=== PATIENT | male | born 1975 | race Caucasian/White ===

== ENCOUNTER 2016-05-15 16:59 | Emergency (ER) | payer OTHER ==
[~2016-05-15] VITALS: Ht 185.4 cm; Wt 125.8 kg
[2016-05-15 17:04] VITALS: TEMP 37.2; Ht 185.4 cm; Wt 125.8 kg
[2016-05-15] MEDS ORDERED: XYLOCAINE 1%/SOD BICARB 20 ML VIAL INFIL ONE (17:30)
[2016-05-15 18:12] VITALS: BP 148/92; PULSE 78; O2SAT 98
--- NOTE | 2016-05-16 22:01 | EMERGENCY ROOM VISIT NOTE ---
ED Visit Note First contact with patient: 17:11 Chief Complaint: I cut my right hand. History of Present Illness: Mr. Che is a 40-year-old white male who ambulates into the ED complaining of a posterior right hand laceration. 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 Prior to arrival at the hospital he did control bleeding but did not wash his wound. Associated with his laceration he reports there is a mild stinging sensation. He rates his discomfort 1/10. Pain is nonradiating. His pain worsens with palpation. He has not identified any alleviating factors related to the pain. He has not taken any medication for pain prior to arrival at the hospital. He denies any associated symptoms including other hand pain, hand/finger weakness/ numbness/tingling. Review of Systems: As noted above in history of present illness. 8 body systems were reviewed and found to be negative as noted above. Past Medical History: Status post surgical repair detached retina and an infected laceration on the left hand. Current Medications: Patient denies. Allergies to Medications: Ibuprofen. Social History: Patient is currently employed; he feels safe in his home environment; he admits to tobacco and alcohol use. Tetanus Immunization Status: Patient reports up-to-date. Physical Examination: Vital Signs: Date Time Temp Pulse Resp B/P Pulse Ox O2 Delivery O2 Flow Rate FiO2 05/15/16 18:12 78 20 148/92 98 05/15/16 17:04 37.2 90 18 154/104 96 Room Air GENERAL: 40-year-old male in mild distress due to pain, nontoxic-appearing, afebrile and hemodynamically stable. NEUROLOGICAL: Awake, alert and oriented to person, place and time. Answering questions appropriately and following commands. SKIN: Warm, dry and pink. Right Hand: Over the posterior aspect of the hand there is a 3.6 cm full-thickness laceration over the first metacarpal. No active bleeding. RIGHT HAND: Soft tissue injury as noted above. No gross bony deformities. Mild tenderness over his laceration but no tenderness or bony deformity or crepitus throughout the hands of the fingers. Throughout the fingers the skin was warm and pink and capillary refill is brisk. He was able to distinguish light sensations through all dermatomes. ED Course: Patient is assessed as noted above. Wound Repair: Complexity: Basic Verbal consent was obtained after the risks and benefits were explained. The skin was prepped with betadine and a sterile field set. Wound edges of the wound was anesthetized with 3.2 ml buffered 1% lidocaine. The wound was explored for foreign bodies and none found. Copious irrigation was performed using sterile saline. With direct pressure the bleeding subsided. Debridement was not performed. The wound edges were approximated using 50- Ethilon with 10 simple interrupted sutures. Hemostasis and excellent approximation was achieved. Antibacterial ointment and a sterile dressing applied. No complications and the patient tolerated the procedure well. Patient was educated about tonight's findings and instructed on his treatment plan; he verbalizes understanding and agreement with this plan. Clinical Impression: Laceration of the right hand. Disposition: Patient discharged home in stable condition; prior to departure he was reassessed and subjectively reported he was pain-free Plan: Comfort measures, wound care, and signs of infection were discussed with the patient. Patient was encouraged to follow-up with primary care provider or return to the ED for signs of infection and/or suture removal in 10-12 days.
== END 2016-05-15 18:13 | disposition home or self-care (01) ==
LOC: C.EDB 17:01 → C.EDD 18:13
DX: S61.411A Laceration without foreign body of right hand, initial encounter (principal); W26.8XXA Contact with other sharp object(s), not elsewhere classified, initial encounter; Y93.89 Activity, other specified; Y99.0 Civilian activity done for income or pay; Y92.89 Other specified places as the place of occurrence of the external cause; Z98.890 Other specified postprocedural states; Z72.0 Tobacco use

== ENCOUNTER 2016-05-27 11:29 | Emergency (ER) | payer OTHER ==
[~2016-05-27] VITALS: Ht 182.9 cm; Wt 126.6 kg
[2016-05-27 11:31] VITALS: PULSE 99; TEMP 36.7; O2SAT 95; Ht 182.9 cm; Wt 126.6 kg
--- NOTE | 2016-05-27 11:50 | EMERGENCY ROOM VISIT NOTE ---
ED Visit Note First contact with patient: 11:41 CHIEF COMPLAINT: Suture removal This patient returns to the ED today for removal of sutures that were placed 10 days ago. There has been no increased swelling, redness, or drainage from the wound. The patient feels like the laceration is healing well. REVIEW OF SYSTEMS: Head: No headache, injury or neck pain. Skin: No rash, new lesions, or masses. General: No fever or chills, fatigue, loss of appetite , or significant recent weight gain or loss. PMH: The patient is healthy; there is no significant medical or surgical history. SOCIAL HISTORY: Patient lives at home. PHYSICAL EXAM: Vital Signs: Reviewed Nurse's notes. There is a sutured wound on the Right hand palmar aspect with no signs of infection. There is no tenderness in this region. There is a well-demarcated erythematous region encircling the wound however believe that this is secondary to scar formation and is not infection. 4 range of motion of the hand. He is neurovascularly intact. EMERGENCY DEPARTMENT COURSE: The sutures were removed without any difficulty. I do believe that it is appropriate to remove the stitches at this time. There is evidence of underlying wound healing, with superficial separation of the wound edges post removal of the stitches. I do believe that is appropriate at this time to thoroughly irrigate the wound, followed by applying tincture of benzoin and then for Steri-Strips. The patient tolerated this well. The Steri- Strips are to help with the superficial wound healing which I suspect will take place in the next few days. The patient was educated to follow-up with his family doctor in the next few days for recheck to ensure proper healing, he is to return here for any worsening such as redness, swelling or drainage. He states that he does work with his hands a lot and I thoroughly educated him upon management of this wound. I informed him that putting in the time now to allow to heal walk for benefit in the future however if he continues to try and use the hand and it becomes dirty and wet that it certainly will become infected and he verbalized understanding. At this time I believe he is stable for discharge. He was again educated upon worrisome symptoms which to return, had questions prior to discharge and was discharged home in good condition. Current/Historical Medications No Active Prescriptions or Reported Meds Allergies Coded Allergies: Ibuprofen (Verified Allergy, Severe, ANAPHYLAXIS, 05/27/16) Vital Signs Date Time Temp Pulse Resp B/P Pulse Ox O2 Delivery O2 Flow Rate FiO2 05/27/16 11:31 36.7 99 18 137/87 95 Room Air Departure Information Impression Primary Impression: Encounter for removal of sutures Dispostion Home / Self-Care Condition GOOD Prescriptions No Active Prescriptions or Reported Meds Referrals Thomas Connor D.OIsai (PCP) Patient Instructions My [facility] Additional Instructions You were seen in the emergency department for removal of your sutures/stitches. The wound is almost healed. Please allow the Steri-Strips to stay on the wound for the next 2 days. Please follow-up with your family doctor by calling them Saturday for recheck. These return for any worsening signs of infection as we discussed such as redness, swelling or drainage. Thank you for your time.
[2016-05-27 11:53] VITALS: BP 118/92
== END 2016-05-27 11:56 | disposition home or self-care (01) ==
LOC: C.EDB 11:31 → C.EDD 11:56
DX: S61.411D Laceration without foreign body of right hand, subsequent encounter (principal); X58.XXXD Exposure to other specified factors, subsequent encounter

== ENCOUNTER 2021-09-09 07:30 | Inpatient (IN) ==
[2021-09-09] MEDS ORDERED: ONDANSETRON INJ 2 MG/ML 2 ML VIAL IV STA (07:46)
[2021-09-09] MEDS ORDERED: HYDROmorphone INJ 1 MG/ML SYRINGE IV STA (07:46)
[2021-09-09] MEDS ORDERED: SODIUM CHLORIDE 0.9% 1000ML 1,000 ML IV ONE (07:46)
--- NOTE | 2021-09-09 07:50 | Emergency Department Note ---
Impression & Plan Acute cholecystitis, Abdominal pain, acute, epigastric ED Provider Note Name: VERONICA ROBBINS Age: 45 Sex: M Arrives Via: Walk-In Informant: Patient, ED Provider: Won Dickens MD Chief Complaint: Abdominal pain Impression: As per impressions above Medical Decision Making: Pleasant 45-year-old healthy male arrives with acute onset of abdominal pain st arting earlier this morning. Primarily epigastric but radiates throughout abdomen associated with nausea and vomiting unable to keep down any liquids. Moderate epigastric right upper quadrant tenderness to palpation on exam with hyperactive bowel sounds felt that CT imaging indicated emergently. Labs with mild white blood cell count elevation mild LFT bump. CT abdomen pelvis reveals acute cholecystitis. Patient was given IV Mefoxin and general surgery was consulted. Patient was taken to the OR for further management. Patient stable not septic and well-appearing throughout most of ER stay. Prior Medical Record and Triage/Nursing Notes reviewed by Me Differentials:Acute cholecystitis, pancreatitis, GERD, peptic ulcer disease, hepatic dysfunction, aortic dissection, bowel obstruction, volvulus, renal colic, mesenteric ischemia, amongst other pathologies. Vital Signs: reviewed and remarkable for no significant abnormalities Interventions: Dilaudid 1 mg IV, Zofran 4 mg IV, normal saline 1 L IV, Mefoxin 2 g IV Labs:Reviewed and remarkable for mild elevation in WBC Imaging:CT abdomen pelvis with IV contrast as per radiology there is acute cholecystitis see radiologist read for full interpretation Consults:Dr. Vieira of [facility] general surgery patient taken the OR for further management Plan: Disposition: Operating Room Condition: Good History of Present Illness:45-year-old gentleman arrives for evaluation of abdominal pain. Patient notes he awoke around 3 AM this morning with severe diffuse abdominal pain. Pain does tend to come a bit in waves but has been relatively constant throughout the night. Stabbing and sharp and nature. Associated with nausea and vomiting. Notes diffuse radiation of pain throughout abdomen but no radiation to back. Denies any chest pain, shortness of breath, syncope, urinary symptoms, diarrhea, leg swelling, rashes, bleeding/bruising, other signs or symptoms. He has had no recent fevers, chills or infectious symptoms. He was working out in the heat the last few days and does get dehydrated easily. He took Tylenol meloxicam without improvement in his abdominal pain. Does note any eating or drinking makes this pain worse and he vomits rapidly. Staying still makes the pain better. No previous abdominal surgeries. Denies any recent trauma, falls, injuries. ROS: See above HPI for pertinent positives & negatives. A total of 10 systems reviewed and were otherwise negative. 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 EYES: No scleral icterus, unremarkable pupils. ENT: Mucous membranes moist, no nasal congestion. NECK: No masses appreciated, nomeningismus, trachea is midline. RESPIRATORY: No dyspnea. Clear to auscultation and equal bilaterally. No wheeze, no rhonchi. CARDIOVASCULAR: Regular rate and rhythm.No murmurs, rubs, gallops appreciated. GASTROINTESTINAL: Soft though diffuse tenderness with hyperactive bowel sounds throughout the epigastrium BACK: No midline tenderness, no CVA tenderness EXTREMITIES: Normal motion all extremities, no cyanosis, no edema. NEUROLOGIC: Alert and oriented, no acute motor or sensory deficits, no focal weakness, cranial nerves grossly intact. SKIN: No rash, no jaundice, no diaphoresis. PSYCH: Appropriate GCS: 15 ED Course: Times/Reassessments: Patient much improved after IV pain medications. Tolerated IV antibiotics without issue. There is some discussion as to whether attempt outpatient management however after further discussion with general surgery he was agreeable to going to the OR for further management. Won Dickens MD Past Med/Surg History Social History Smoking Status: Never smoker Tobacco Type: Smokeless Tobacco (Dip or Chew) Preferred Language: Iraqi Feels Safe at Home: Yes Allergies Allergies Allergy/AdvReac Type Severity Reaction Status Date / Time ibuprofen Allergy Severe ANAPHYLAXIS Verified 09/09/21 12:17 Home Meds Home Medications Medication Instructions Recorded Confirmed fluticasone propionate 50 2 spray intranasal BID 09/09/21 09/09/21 mcg/actuation nasal spray,suspension (24 Hour Allergy Relief) meloxicam 7.5 mg tablet 7.5 mg PO QAM 09/09/21 09/09/21 Results & Data (ED) Vital Signs Vital Signs - 24 hr 09/09/21 07:34 09/09/21 08:34 09/09/21 09:22 Temperature 36.3 C L Temperature Source Temporal Artery Scan Pulse Rate 52 L Pulse Rate [Right Finger] 62 Respiratory Rate 18 16 18 Respiratory Effort / Characteristics Non-Labored Non-Labored Non-Labored Respiratory Depth Normal Normal Normal Respiratory Pattern Regular Regular Blood Pressure 147/70 H Blood Pressure [Right Arm] 121/77 126/70 Blood Pressure Mean 95 Blood Pressure Mean [Right Arm] 91 88 Blood Pressure Position [Right Arm] Lying Lying Pulse Oximetry 94 95 98 Oxygen Delivery Method Room Air Room Air Room Air Sepsis Recent Fever Within 48 Hours No Sepsis New/Unexplained Change in Mental Status No Sepsis Action Taken by Nursing No Action Required 09/09/21 10:33 09/09/21 13:08 Temperature Temperature Source Pulse Rate Pulse Rate [Right Finger] 58 L 66 Respiratory Rate 16 16 Respiratory Effort / Characteristics Non-Labored Spontaneous Non-Labored Respiratory Depth Normal Normal Respiratory Pattern Regular Blood Pressure Blood Pressure [Right Arm] 145/85 H 124/79 Blood Pressure Mean Blood Pressure Mean [Right Arm] 105 94 Blood Pressure Position [Right Arm] Lying Lying Pulse Oximetry 97 96 Oxygen Delivery Method Room Air Room Air Sepsis Recent Fever Within 48 Hours Sepsis New/Unexplained Change in Mental Status Sepsis Action Taken by Nursing Laboratory Data Result diagrams: 09/09/21 07:50 09/09/21 07:50 Lab Results 09/09/21 09/09/21 09/09/21 Range/Units 07:50 07:50 07:50 WBC 12.01 H (4.8-10.8) K/ul RBC 5.18 (4.63-6.08) M/uL Hgb 15.9 (14.0-18.0) g/dl POC Hgb (14.0-18.0) g/dl Hct 46.7 (40.1-51.0) % POC Hct (42-52) % MCV 90.2 (80.0-100.0) fL MCH 30.7 (25.0-34.0) pg MCHC 34.0 (32.0-36.0) g/dL RDW Std Deviation 40.8 (36.4-46.3) fL RDW Coeff of Keegan 12.3 (11.5-14.5) % Plt Count 210 (130-400) K/uL MPV 9.2 L (9.4-12.4) fL Immature Gran % (Auto) 0.4 % Neut % (Auto) 82.9 % Lymph % (Auto) 11.7 % [place] % (Auto) 4.6 % Eos % (Auto) 0.3 % Baso % (Auto) 0.1 % Neut # (Auto) 9.95 H (1.4-6.5) K/uL Lymph # (Auto) 1.41 (1.2-3.4) K/uL [place] # (Auto) 0.55 (0.24-0.82) K/uL Eos # (Auto) 0.04 (0-0.50) K/uL Baso # (Auto) 0.01 (0-0.2) K/uL Immature Gran # (Auto) 0.05 H (0.00-0.02) K/uL POC Sodium (135-144) mmol/L Sodium 140 (136-145) mmol/L POC Potassium (3.3-5.0) mmol/L Potassium 4.3 (3.5-5.1) mmol/L POC Chloride (101-112) mmol/L Chloride 106 (98-107) mmol/L Carbon Dioxide 29 (21-32) mmol/L POC Total CO2 (24-31) mmol/L Anion Gap 5 (3-11) POC Anion Gap (16-25) mmol/L POC BUN (7-18) mg/dl BUN 17 (6-23) mg/dl Creatinine 0.90 (0.6-1.4) mg/dl POC Creatinine (0.6-1.3) mg/dl Est Cr Clr Drug Dosing 140.2 ml/min Est GFR ( Amer) 119.1 ml/min Est GFR (Non-Af Amer) 102.8 ml/min BUN/Creatinine Ratio 18.9 (10-20) Glucose 130 H (70-99(Fasting)) mg/dl POC Glucose (other) (70-99) mg/dl Calcium 9.5 (8.5-10.1) mg/dl POC Ioniz Calcium [place] (1.12-1.32) mmol/l Total Bilirubin 0.9 (0.2-1.0) mg/dl Direct Bilirubin 0.1 (0-0.2) mg/dl AST 29 (13-39) U/L ALT 64 H (7-52) U/L Alkaline Phosphatase 73 (34-104) U/L Total Creatine Kinase 244 H (30-223) U/L Total Protein 7.8 (6.0-8.3) gm/dl Albumin 4.5 (3.4-5.0) gm/dl Lipase 18 (11-82) U/L Urine Color Yellow Urine Appearance Clear (Clear) Urine pH 5.0 (4.5-7.5) Ur Specific [place] 1.024 (1.000-1.030) Urine Protein Negative (Negative) Urine Glucose (UA) Negative (Negative) Urine Ketones Negative (Negative) Urine Blood Negative (Negative) Urine Nitrite Negative (Negative) Urine Bilirubin Negative (Negative) Urine Urobilinogen Negative (Negative) Ur Leukocyte Esterase Negative (Negative) SARS-CoV-2, RNA, NAAT (NEGATIVE) 09/09/21 09/09/21 Range/Units 08:00 09:10 WBC (4.8-10.8) K/ul RBC (4.63-6.08) M/uL Hgb (14.0-18.0) g/dl POC Hgb 16.7 (14.0-18.0) g/dl Hct (40.1-51.0) % POC Hct 49 (42-52) % MCV (80.0-100.0) fL MCH (25.0-34.0) pg MCHC (32.0-36.0) g/dL RDW Std Deviation (36.4-46.3) fL RDW Coeff of Keegan (11.5-14.5) % Plt Count (130-400) K/uL MPV (9.4-12.4) fL Immature Gran % (Auto) % Neut % (Auto) % Lymph % (Auto) % [place] % (Auto) % Eos % (Auto) % Baso % (Auto) % Neut # (Auto) (1.4-6.5) K/uL Lymph # (Auto) (1.2-3.4) K/uL [place] # (Auto) (0.24-0.82) K/uL Eos # (Auto) (0-0.50) K/uL Baso # (Auto) (0-0.2) K/uL Immature Gran # (Auto) (0.00-0.02) K/uL POC Sodium 143 (135-144) mmol/L Sodium (136-145) mmol/L POC Potassium 4.3 (3.3-5.0) mmol/L Potassium (3.5-5.1) mmol/L POC Chloride 105 (101-112) mmol/L Chloride (98-107) mmol/L Carbon Dioxide (21-32) mmol/L POC Total CO2 26 (24-31) mmol/L Anion Gap (3-11) POC Anion Gap 18.0 (16-25) mmol/L POC BUN 17 (7-18) mg/dl BUN (6-23) mg/dl Creatinine (0.6-1.4) mg/dl POC Creatinine 0.9 (0.6-1.3) mg/dl Est Cr Clr Drug Dosing ml/min Est GFR ( Amer) ml/min Est GFR (Non-Af Amer) ml/min BUN/Creatinine Ratio (10-20) Glucose (70-99(Fasting)) mg/dl POC Glucose (other) 132 H (70-99) mg/dl Calcium (8.5-10.1) mg/dl POC Ioniz Calcium [place] 1.22 (1.12-1.32) mmol/l Total Bilirubin (0.2-1.0) mg/dl Direct Bilirubin (0-0.2) mg/dl AST (13-39) U/L ALT (7-52) U/L Alkaline Phosphatase (34-104) U/L Total Creatine Kinase (30-223) U/L Total Protein (6.0-8.3) gm/dl Albumin (3.4-5.0) gm/dl Lipase (11-82) U/L Urine Color Urine Appearance (Clear) Urine pH (4.5-7.5) Ur Specific [place] (1.000-1.030) Urine Protein (Negative) Urine Glucose (UA) (Negative) Urine Ketones (Negative) Urine Blood (Negative) Urine Nitrite (Negative) Urine Bilirubin (Negative) Urine Urobilinogen (Negative) Ur Leukocyte Esterase (Negative) SARS-CoV-2, RNA, NAAT NEGATIVE (NEGATIVE) Administered Medications Fentanyl Citrate (Fentanyl Citrate 100 Mcg/2 Ml Vial) 50 mcg IV Q5M PRN PRN Reason: PACU Use Only-Pain Stop: 09/09/21 22:42 Last Admin: 09/09/21 17:55 Dose: 50 mcg Documented By: WT Discontinued Medications Bacitracin (Bacitracin Oint 15 Gm Tube) Confirm Administered Dose 45 appln .ROUTE .STK-MED ONE Stop: 09/09/21 15:11 Last Admin: 09/09/21 17:32 Dose: 45 appln Documented By: KORIN Bupivacaine HCl (Bupivacaine 0.5 % 5 Mg/1 Ml Mpf 30ml Vial) Confirm Administered Dose 30 ml .ROUTE .STK-MED ONE Stop: 09/09/21 15:11 Last Admin: 09/09/21 17:32 Dose: 20 ml Documented By: KORIN Hydromorphone HCl (Hydromorphone Inj 1 Mg/Ml Syringe) 1 mg IV NOW STA Stop: 09/09/21 07:47 Last Admin: 09/09/21 07:54 Dose: 1 mg Documented By: DORIS Sodium Chloride (Nss 1000ml) 1,000 mls @ 999 mls/hr IV .Q1H1M ONE Stop: 09/09/21 08:46 Last Infusion: 09/09/21 09:00 Dose: 0 mls/hr Documented By: Admin: 09/09/21 07:54 Dose: 999 mls/hr Documented By: DORIS Cefoxitin Sodium (Mefoxin) 2,000 mg in 60 mls @ 100 mls/hr IV NOW STA Stop: 09/09/21 09:31 Last Infusion: 09/09/21 09:42 Dose: 0 mls/hr Documented By: Admin: 09/09/21 09:06 Dose: 100 mls/hr Documented By: ANAND Cefazolin Sodium (Ancef 2000mg) 2,000 mg in 15 mls @ 3.75 mls/min IV PREOP ONE Stop: 09/09/21 13:18 Last Admin: 09/09/21 15:24 Dose: 3.75 mls/min Documented By: DANIEL Ioversol (Optiray 320 100ml) 95 ml IV ONCE ONE Stop: 09/09/21 08:11 Last Admin: 09/09/21 08:11 Dose: 95 ml Documented By: SERGEI Lidocaine HCl (Lidocaine 1% Local 20 Ml Vial) Confirm Administered Dose 20 ml .ROUTE .STK-MED ONE Stop: 09/09/21 15:11 Last Admin: 09/09/21 17:32 Dose: 20 ml Documented By: KORIN Ondansetron HCl (Ondansetron Inj 2 Mg/Ml 2 Ml Vial) 4 mg IV NOW STA Stop: 09/09/21 07:47 Last Admin: 09/09/21 07:54 Dose: 4 mg Documented By: SYLVESTERE Imaging Data Radiologist's Impression: Abdomen/Pelvis CT 09/09/21 07:[address] WITH IV CONTRAST CT DOSE: 1256.37 mGy.cm HISTORY: diffuse abdominal pain, vomiting, sudden onset TECHNIQUE: Multiaxial CT images of the abdomen and pelvis were performed following the use of intravenous contrast. A dose lowering technique was utili zed adhering to the principles of ALARA. COMPARISON STUDY: None. FINDINGS: A 3 mm subpleural nodule within the right middle lobe on image 6. A 3 mm subpleural nodule within the right middle lobe on image 33. A 3 mm subpleural nodule within the left lower lobe on image 66. No pneumoperitoneum. No pneumatosis. No acute fractures within the visualized osseous structures. Small fat-containing umbilical hernia. Moderate to severe disc space narrowing at L5- S1. The liver, pancreas, spleen, adrenal glands, and kidneys are unremarkable. No hydronephrosis. No retroperitoneal lymphadenopathy. Normal caliber abdominal aorta. The ankle vein is patent. Mild gallbladder wall thickening with mild adjacent inflammatory change/edema. There appears to be a punctate gas containing stone at the gallbladder neck on image 120. Therefore, this is highly suspicious for acute cholecystitis. No pelvic free fluid. The bladder is unremarkable. No bowel wall thickening or obstruction. Normal appendix. IMPRESSION: 1. Mild gallbladder wall thickening with mild adjacent inflammatory change/edema. There appears to be a punctate gas-containing stone at the gallbladder neck. Therefore, this is highly suspicious for acute cholecystitis. Surgical consultation recommended. 2. No bowel wall thickening or obstruction. 3. A few subcentimeter low suspicion nodules at the lung bases measuring up to 3 mm. Please refer to below summary of Fleischner criteria recommendations for follow- up of incidental CT nodules (Clara Haddad, Guidelines for management of small pulm onary nodules detected on CT scans: A statement from the Fleischner Society, Radiology 237: [phone].) SOLID NODULES Solitary nodule size: <6 mm * Low risk patients: no follow-up needed * high risk patients: optional CT at 12 months Solitary nodule size: 6-8 mm * Low risk patients: follow-up at 6-12 months, then consider further follow-up at 18-24 months * high risk patients: initial follow-up CT at 6-12 months and then at 18-24 months if no change Solitary nodule size: >8 mm * either low or high risk patients - consider follow-up CT at 3 months, and/or CT-PET, and/or biopsy Multiple nodules size: <6 mm * Low risk patients: no routine follow-up * high risk patients: optional CT at 12 months Multiple nodules size: 6-8 mm * Low risk patients: follow-up at 3-6 months, then consider further follow-up at 18-24 months * high risk patients: follow-up at 3-6 months, then at 18-24 months if no change Multiple nodules size: >8 mm * Low risk patients: follow-up at 3-6 months, then consider further follow-up at 18-24 months * high risk patients: follow-up at 3-6 months, then at 18-24 months if no change Note: newly detected indeterminate nodule in persons 35 years of age or older. * Low risk patients: minimal or absent history of smoking and/or other known risk factors * high risk patients: history of smoking or of other known risk factors (e.g. first degree relative with lung cancer, or exposure to asbestos, radon, uranium) * if a nodule up to 8 mm is partly solid or is ground glass further follow-up is required after 24 months to exclude possible slow growing adenocarcinoma (NEFTALY) SUBSOLID NODULES Solitary pure ground-glass nodule * nodule size <6 mm - no CT follow-up required * nodule size >=6 mm - follow-up CT at 6-12 months, then every 2 years until 5 years Solitary part-solid nodule * nodule size <6 mm - no CT follow-up required * nodule size >=6 mm - follow-up CT at 3-6 months. If unchanged, and solid component remains <6 mm, then annual follow-up for 5 years Multiple subsolid nodules * nodule size <6 mm - follow-up CT at 3-6 months, consider further follow-up at 2 and 4 years if stable * nodule size >=6 mm - follow-up CT at 3-6 months, subsequent management based on the most suspicious nodule(s) ACT 112: Negative or not required by law. Electronically signed by: Ulises Caldwell M.D. 09/09/2021 8:38 AM Discharge Plan Visit Data Chief Complaint: Vomiting Stated Complaint: VOMITING,ABD PAIN ED Provider: Won Dickens Discharge Problem: Acute cholecystitis, Abdominal pain, acute, epigastric Discharge Instructions Interventions: ED Discharge Assessment Last Done: 09/09/21 13:50
[2021-09-09 08:03] LABS: Basophils # (auto) 0.01 K/uL (0-0.2); Basophils % (auto) 0.1 %; Eosinophils # (auto) 0.04 K/uL (0-0.50); Eosinophils % (auto) 0.3 %; Hematocrit (blood only) 46.7 % (40.1-51.0); Hemoglobin 15.9 g/dl (14.0-18.0); Immature Granulocytes # (auto) 0.05 K/uL (0.00-0.02); Immature Granulocytes % (auto) 0.4 %; Lymphocytes # (auto) 1.41 K/uL (1.2-3.4); Lymphocytes % (auto) 11.7 %; Mean Corpuscular Hemoglobin 30.7 pg (25.0-34.0); Mean Corpuscular Volume 90.2 fL (80.0-100.0); Mean Platelet Volume 9.2 fL (9.4-12.4); Monocytes # (auto) 0.55 K/uL (0.24-0.82); Monocytes % (auto) 4.6 %; Neutrophils # (auto) 9.95 K/uL (1.4-6.5); Neutrophils % (auto) 82.9 %; Platelet Count 210 K/uL (130-400); RDW Coefficient of Variation 12.3 % (11.5-14.5); RDW Standard Deviation 40.8 fL (36.4-46.3); Red Blood Count 5.18 M/uL (4.63-6.08); White Blood Count 12.01 K/ul (4.8-10.8)
[2021-09-09] MEDS ORDERED: OPTIRAY 320 100ml IV ONE (08:10)
[2021-09-09 08:17] LABS: iSTAT Creatinine 0.9 mg/dl (0.6-1.3); iSTAT Hemoglobin 16.7 g/dl (14.0-18.0); iSTAT Ionized Calcium 1.22 mmol/l (1.12-1.32); iSTAT Potassium 4.3 mmol/L (3.3-5.0)
[2021-09-09 08:22] LABS: Appearance Urine Clear (Clear); Bilirubin Urine Negative (Negative); Blood Urine Negative (Negative); Color Urine Yellow; Glucose Urine UA Negative (Negative); Ketones Urine Negative (Negative); Leukocyte Esterase Urine Negative (Negative); Nitrite Urine Negative (Negative); Protein Urine Negative (Negative); Specific Gravity Urine 1.024 (1.000-1.030); Urobilinogen Urine Negative (Negative)
[2021-09-09 08:28] LABS: Albumin Level 4.5 gm/dl (3.4-5.0); BUN Creatinine Ratio 18.9 (10-20); Bilirubin Direct 0.1 mg/dl (0-0.2); Bilirubin,Total 0.9 mg/dl (0.2-1.0); Calcium 9.5 mg/dl (8.5-10.1); Creatinine Clr Calc Pharmacy 140.2 ml/min; Est GFR (African American) 119.1 ml/min; Est GFR (Non-African American) 102.8 ml/min; Potassium 4.3 mmol/L (3.5-5.1); Total Protein 7.8 gm/dl (6.0-8.3)
--- NOTE | 2021-09-09 08:39 | CT Scan Report ---
ABDOMEN AND PELVIS CT WITH IV CONTRAST CT DOSE: 1256.37 mGy.cm HISTORY: diffuse abdominal pain, vomiting, sudden onset TECHNIQUE: Multiaxial CT images of the abdomen and pelvis were performed following the use of intrave nous contrast. A dose lowering technique was utilized adhering to the principles of ALARA. COMPARISON STUDY: None. FINDINGS: A 3 mm subpleural nodule within the right middle lobe on image 6. A 3 mm subpleural nodule within the right middle lobe on image 33. A 3 mm subpleural nodule within the left lower lobe on imag e 66. No pneumoperitoneum. No pneumatosis. No acute fractures within the visualized osseous structure s. Small fat-containing umbilical hernia. Moderate to severe disc space narrowing at L5-S1. The liver , pancreas, spleen, adrenal glands, and kidneys are unremarkable. No hydronephrosis. No retroperitone al lymphadenopathy. Normal caliber abdominal aorta. The ankle vein is patent. Mild gallbladder wall t hickening with mild adjacent inflammatory change/edema. There appears to be a punctate gas containing stone at the gallbladder neck on image 120. Therefore, this is highly suspicious for acute cholecyst itis. No pelvic free fluid. The bladder is unremarkable. No bowel wall thickening or obstruction. Nor mal appendix. IMPRESSION: 1. Mild gallbladder wall thickening with mild adjacent inflammatory change/edema. There appears to be a punctate gas-containing stone at the gallbladder neck. Therefore, this is highly suspicious for ac [place] cholecystitis. Surgical consultation recommended. 2. No bowel wall thickening or obstruction. 3. A few subcentimeter low suspicion nodules at the lung bases measuring up to 3 mm. Please refer to below summary of Fleischner criteria recommendations for follow-up of incidental CT n odules (Clara Haddad, Guidelines for management of small pulmonary nodules detected on CT scans: A sta tement from the Fleischner Society, Radiology 237: [phone].) SOLID NODULES Solitary nodule size: <6 mm * Low risk patients: no follow-up needed * high risk patients: optional CT at 12 months Solitary nodule size: 6-8 mm * Low risk patients: follow-up at 6-12 months, then consider further follow-up at 18-24 months * high risk patients: initial follow-up CT at 6-12 months and then at 18-24 months if no change Solitary nodule size: >8 mm * either low or high risk patients - consider follow-up CT at 3 months, and/or CT-PET, and/or biopsy Multiple nodules size: <6 mm * Low risk patients: no routine follow-up * high risk patients: optional CT at 12 months Multiple nodules size: 6-8 mm * Low risk patients: follow-up at 3-6 months, then consider further follow-up at 18-24 months * high risk patients: follow-up at 3-6 months, then at 18-24 months if no change Multiple nodules size: >8 mm * Low risk patients: follow-up at 3-6 months, then consider further follow-up at 18-24 months * high risk patients: follow-up at 3-6 months, then at 18-24 months if no change Note: newly detected indeterminate nodule in persons 35 years of age or older. * Low risk patients: minimal or absent history of smoking and/or other known risk factors * high risk patients: history of smoking or of other known risk factors (e.g. first degree relative with lung cancer, or exposure to asbestos, radon, uranium) * if a nodule up to 8 mm is partly solid or is ground glass further follow-up is required after 24 m ont to exclude possible slow growing adenocarcinoma (NEFTALY) SUBSOLID NODULES Solitary pure ground-glass nodule * nodule size <6 mm - no CT follow-up required * nodule size >=6 mm - follow-up CT at 6-12 months, then every 2 years until 5 years Solitary part-solid nodule * nodule size <6 mm - no CT follow-up required * nodule size >=6 mm - follow-up CT at 3-6 months. If unchanged, and solid component remains <6 mm, then annual follow-up for 5 years Multiple subsolid nodules * nodule size <6 mm - follow-up CT at 3-6 months, consider further follow-up at 2 and 4 years if sta ble * nodule size >=6 mm - follow-up CT at 3-6 months, subsequent management based on the most suspiciou s nodule(s) ACT 112: Negative or not required by law. Electronically signed by: Ulisse Caldwell M.D. 09/09/2021 8:38 AM
[2021-09-09] MEDS ORDERED: cefOXitin 2,000 MG/60 ML BAG IV STA (08:56)
--- NOTE | 2021-09-09 12:50 | Surgery Consultation ---
Date of Consultation September 09, 2021 Assessment & Plan (1) Acute cholecystitis due to biliary calculus: pt is a 45 year-old male who presents to Er with one day history RUQ pain, IMP: acute cholecystitis, cholelithiasis, Plan, I recommend to do laparoscopic cholecystectomy, possible open or cholangiogram, D/W benefits, risks and alternatives of the surgery, the risks- infection, bleeding, injury other organs, incisional hernia, may need ERCP, pt understood, he agrees with surgery, he signed informed consent, I answered all questions, pre-op iv antibiotic, History of Present Illness Reason for Consultation: RUQ pain Attending Physician: Won Garcia MD History of Present Illness History of Present Illness:45-year-old gentleman arrives for evaluation of abdominal pain. Patient notes he awoke around 3 AM this morning with severe diffuse abdominal pain. Pain does tend to come a bit in waves but has been re latively constant throughout the night. Stabbing and sharp and nature. Associated with nausea and vomiting. Notes diffuse radiation of pain throughout abdomen but no radiation to back. Denies any chest pain, shortness of breath, syncope, urinary symptoms, diarrhea, leg swelling, rashes, bleeding/bruising, other signs or symptoms. He has had no recent fevers, chills or infectious symptoms. He was working out in the heat the last few days and does get dehydrated easily. He took Tylenol meloxicam without improvement in his abdominal pain. Does note any eating or drinking makes this pain worse and he vomits rapidly. Staying still makes the pain better. No previous abdominal surgeries. Denies any recent trauma, falls, injuries. I ( Francoise Vieira MD ) got a call for consult acute cholecystitis, I reviewed pt's H/P, labs, CT scan with pt, ROS: See above HPI for pertinent positives & negatives. A total of 10 systems reviewed and were otherwise negative. 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, , no drug use, occasional alcohol, no smoking, chews tobacco Home Medications:Meloxicam, as needed Tylenol Allergies:Motrin Allergies Allergy/AdvReac Type Severity Reaction Status Date / Time ibuprofen Allergy Severe ANAPHYLAXIS Verified 09/09/21 12:17 Home Medications Medication Instructions Recorded Confirmed Type fluticasone propionate 50 2 spray intranasal BID 09/09/21 09/09/21 History mcg/actuation nasal spray,suspension (24 Hour Allergy Relief) meloxicam 7.5 mg tablet 7.5 mg PO QAM 09/09/21 09/09/21 History Patient History Social History Smoking Status: Never smoker Tobacco Type: Smokeless Tobacco (Dip or Chew) Preferred Language: Irish Feels Safe at Home: Yes Review of Systems Constitutional: as per Subjective / HPI obesity Eyes: as per Subjective / HPI Respiratory: as per Subjective / HPI Cardiovascular: as per Subjective / HPI Gastrointestinal: as per Subjective / HPI Genitourinary: + as per Subjective / HPI Neurologic: as per Subjective / HPI Psychiatric: as per Subjective / HPI Endocrine: as per Subjective / HPI Hematologic / Lymphatic: as per Subjective / HPI Physical Exam Constitutional: obesity, Eyes: PERRL, conjunctivae normal, anicteric sclerae Neck: trachea midline, no thyromegaly Respiratory: normal respiratory effort, lungs clear to auscultation Cardiovascular: RRR, no murmur, no edema Gastrointestinal (Abdomen): soft, mild tenderness at RUQ, no rebound pain, BS + Musculoskeletal: no cyanosis or clubbing, extremities motor strength 5/5 Neurologic: patellar DTR's 2+ bilat, sensation intact Psychiatric: A+Ox3, euthymic affect Results & Data ([facility]) Vital Signs (Past 12 Hours) Vital Signs Temp Pulse Pulse Resp BP BP Pulse Ox 09/09/21 10:33 58 L 16 145/85 H 97 09/09/21 09:22 62 18 126/70 98 09/09/21 08:34 16 121/77 95 09/09/21 07:34 36.3 C L 52 L 18 147/70 H 94 O2 Del Method 09/09/21 10:33 Room Air 09/09/21 09:22 Room Air 09/09/21 08:34 Room Air 09/09/21 07:34 Room Air Laboratory Results Abnormal lab results 09/09/21 09/09/21 09/09/21 Range/Units 07:50 07:50 08:00 WBC 12.01 H (4.8-10.8) K/ul MPV 9.2 L (9.4-12.4) fL Neut # (Auto) 9.95 H (1.4-6.5) K/uL Immature Gran # (Auto) 0.05 H (0.00-0.02) K/uL Glucose 130 H (70-99(Fasting)) mg/dl POC Glucose (other) 132 H (70-99) mg/dl ALT 64 H (7-52) U/L Total Creatine Kinase 244 H (30-223) U/L Diagnostic Findings ABDOMEN AND PELVIS CT WITH IV CONTRAST CT DOSE: 1256.37 mGy.cm HISTORY: diffuse abdominal pain, vomiting, sudden onset TECHNIQUE: Multiaxial CT images of the abdomen and pelvis were performed following the use of intravenous contrast. A dose lowering technique was utilized adhering to the principles of ALARA. COMPARISON STUDY: None. FINDINGS: A 3 mm subpleural nodule within the right middle lobe on image 6. A 3 mm subpleural nodule within the right middle lobe on image 33. A 3 mm subpleural nodule within the left lower lobe on image 66. No pneumoperitoneum. No pneumatosis. No acute fractures within the visualized osseous structures. Small fat-containing umbilical hernia. Moderate to severe disc space narrowing at L5-S1. The liver, pancreas, spleen, adrenal glands, and kidneys are unremarkable. No hydronephrosis. No retroperitoneal lymphadenopathy. Normal caliber abdominal aorta. The ankle vein is patent. Mild gallbladder wall thickening with mild adjacent inflammatory change/edema. There appears to be a punctate gas containing stone at the gallbladder neck on image 120. Therefore, this is highly suspicious for acute cholecystitis. No pelvic free fluid. The bladder is unremarkable. No bowel wall thickening or obstruction. Normal appendix. IMPRESSION: 1. Mild gallbladder wall thickening with mild adjacent inflammatory change/edema. There appears to be a punctate gas-containing stone at the gallbladder neck. Therefore, this is highly suspicious for acute cholecystitis. Surgical consultation recommended. 2. No bowel wall thickening or obstruction. 3. A few subcentimeter low suspicion nodules at the lung bases measuring up to 3 mm.
--- NOTE | 2021-09-09 12:55 | History & Physical Bridge Note ---
Date of Service September 09, 2021 History & Physical Bridge Note I have examined the patient, reviewed the History & Physical and in the interval since the performance of the History & Physical I have noted the following changes of clinical significance: no changes noted
[2021-09-09] MEDS ORDERED: ceFAZolin 2000MG 2,000 MG/15 ML SYR IV ONE (13:15)
[2021-09-09] MEDS ORDERED: ONDANSETRON INJ 2 MG/ML 2 ML VIAL ONE (14:30)
[2021-09-09] MEDS ORDERED: LIDOCAINE 2% 2 ML VIAL/AMP(20MG/ML) INFIL ONE (14:30)
[2021-09-09] MEDS ORDERED: DEXAMETHASONE SOD INJ 4 MG/ML VIAL ONE (14:30)
[2021-09-09] MEDS ORDERED: NEOSTIGMINE METHYLSULFATE 1 MG/ML 10ML VIAL ONE (14:30)
[2021-09-09] MEDS ORDERED: GLYCOPYRROLATE 0.2 MG/ML VIAL ONE (14:30)
[2021-09-09] MEDS ORDERED: PROPOFOL IV EMULSION 10 MG/ML 20 ML VIAL IV ONE (14:30)
[2021-09-09] MEDS ORDERED: MIDAZOLAM HCL 1 MG/ML 2ML VIAL ONE (14:31)
[2021-09-09] MEDS ORDERED: fentaNYL citrate 100 MCG/2 ML VIAL ONE ×2 (14:31→17:54)
--- NOTE | 2021-09-09 14:41 | Anesthesiology Consultation ---
Date of Service September 09, 2021 Assessment & Plan Chart Review Chart Review: Acceptable Risk for Surgery Consults Requested none History Surgery Operation Date: 09/09/21 15:00 Proposed Procedures p Laparoscopic Cholecystectomy - Francoise Vieira MD Height/Weight Height: 6 ft 2 in Weight: 115.7 kg Allergies Allergy/AdvReac Type Severity Reaction Status Date / Time ibuprofen Allergy Severe ANAPHYLAXIS Verified 09/09/21 12:17 Medications Home Medications Medication Instructions Recorded Confirmed Last Taken fluticasone propionate 50 2 spray intranasal BID 09/09/21 09/09/21 Unknown mcg/actuation nasal spray,suspension (24 Hour Allergy Relief) meloxicam 7.5 mg tablet 7.5 mg PO QAM 09/09/21 09/09/21 Unknown NPO Date Last Intake of Fluids: 09/09/21 Time Last Intake of Fluids: 05:00 Last Intake of Fluids Comment: patient states vomited after Date Last Intake of Solids: 09/08/21 Time Last Intake of Solids: 20:00 Social History Smoking Status: Never smoker Physical Exam Vital Signs Last Vital Signs Temp 36.3 C L 09/09/21 07:34 Pulse 66 09/09/21 13:08 Resp 16 09/09/21 13:08 BP 124/79 09/09/21 13:08 Pulse Ox 96 09/09/21 13:08 O2 Del Method 09/09/21 13:08 Testing Laboratory Results 09/09/21 07:50 09/09/21 07:50 Urine Color Yellow 09/09/21 07:50 Urine Appearance Clear (Clear) 09/09/21 07:50 Urine pH 5.0 (4.5-7.5) 09/09/21 07:50 Ur Specific [place] 1.024 (1.000-1.030) 09/09/21 07:50 Urine Protein Negative (Negative) 09/09/21 07:50 Urine Glucose (UA) Negative (Negative) 09/09/21 07:50 Urine Ketones Negative (Negative) 09/09/21 07:50 Urine Nitrite Negative (Negative) 09/09/21 07:50 Ur Leukocyte Esterase Negative (Negative) 09/09/21 07:50 09/09/21 08:00 POC Glucose (other) 132 H
[2021-09-09] MEDS ORDERED: PROMETHAZINE HCL 12.5 MG in SODIUM CHLORIDE 0.9% 50 ML IV PRN (14:42)
[2021-09-09] MEDS ORDERED: ONDANSETRON INJ 2 MG/ML 2 ML VIAL IV PRN (14:42)
[2021-09-09] MEDS ORDERED: ATROPINE SULFATE 0.1 MG/ML 10ML SYR IV PRN (14:42)
[2021-09-09] MEDS ORDERED: ePHEDrine sulfate 50 MG/ML AMP IV PRN (14:42)
[2021-09-09] MEDS ORDERED: BACITRACIN OINT 15 GM TUBE ONE (15:10)
[2021-09-09] MEDS ORDERED: LIDOCAINE 1% LOCAL 20 ML VIAL ONE (15:10)
[2021-09-09] MEDS ORDERED: BUPIVACAINE 0.5 % 5 MG/1 ML MPF 30ML VIAL ONE (15:10)
[2021-09-09] MEDS ORDERED: SUCCINYLCHOLINE CHLORIDE 20 MG/ML 10 ML VIAL IV ONE (16:03)
[2021-09-09] MEDS ORDERED: ROCURONIUM BROMIDE 10 MG/ML 5 ML VIAL IV ONE ×5 (16:03→17:08)
[2021-09-09] MEDS ORDERED: HYDROmorphone INJ 2 MG/ML SYR/VIAL ONE (16:05)
[2021-09-09] MEDS ORDERED: ceFAZolin 330 MG/ML 1 GM VIAL ONE (17:09)
--- NOTE | 2021-09-09 17:37 | Post Operative Brief Note ---
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
[2021-09-09] MEDS: fentaNYL citrate 100 MCG/2 ML VIAL IV PRN ×2 (17:55→18:00)
[2021-09-09] MEDS ORDERED: HYDROmorphone INJ 0.5 MG/0.5 ML SYR ONE ×5 (18:04→18:43)
[2021-09-09] MEDS: HYDROmorphone INJ 2 MG/ML SYR/VIAL IV PRN ×4 (18:05→18:25)
[2021-09-09] MEDS ORDERED: HYDROmorphone INJ 2 MG/ML SYR/VIAL IV PRN (18:38)
--- NOTE | 2021-09-09 19:10 | Anesthesiology Progress Note ---
Date of Service September 09, 2021 Anesthesia Post Procedure Vital Signs Vital Signs: Temp Pulse Pulse Pulse Resp BP BP 09/09/21 19:05 75 16 147/96 H 09/09/21 18:55 88 18 169/89 H 09/09/21 18:45 36.4 C L 80 24 165/102 H 09/09/21 18:35 83 22 187/87 H 09/09/21 18:25 81 22 168/97 H 09/09/21 18:15 74 20 180/105 H 09/09/21 18:05 66 18 192/98 H 09/09/21 17:55 68 22 178/93 H 09/09/21 17:46 36.0 C L 56 L 18 172/101 H 09/09/21 13:08 66 16 09/09/21 10:33 58 L 16 09/09/21 09:22 62 18 09/09/21 08:34 16 09/09/21 07:34 36.3 C L 52 L 18 147/70 H BP Pulse Ox O2 Del Method O2 Flow Rate 09/09/21 19:05 92 Nasal Cannula 3.5 09/09/21 18:55 92 Nasal Cannula 4 09/09/21 18:45 94 Nasal Cannula 4 09/09/21 18:35 95 Nasal Cannula 4 09/09/21 18:25 95 Nasal Cannula 4 09/09/21 18:15 95 Nasal Cannula 4 09/09/21 18:05 95 Nasal Cannula 4 09/09/21 17:55 95 Nasal Cannula 2 09/09/21 17:46 93 Room Air 09/09/21 13:08 124/79 96 Room Air 09/09/21 10:33 145/85 H 97 Room Air 09/09/21 09:22 126/70 98 Room Air 09/09/21 08:34 121/77 95 Room Air 09/09/21 07:34 94 Room Air Pain Intensity Abdomen: Pain Intensity: 5 Transfer of Care Handoff Completed per policy Notes Mental Status: alert / awake / arousable and participated in evaluation Patient Amnestic to Procedure: Yes Nausea / Vomiting: adequately controlled Pain: adequately controlled Airway Patency, RR, SpO2: stable & adequate BP & HR: stable & adequate Hydration State: stable & adequate Anesthetic Complications: no major complications apparent
[2021-09-09] MEDS ORDERED: PIPERACILLIN/TAZOBACTAM 3.375 GM in DEXTROSE 5% 100 ML IV ONE (20:15)
[2021-09-09] MEDS: oxyCODONE/ACETAMINOPHEN 5mg/325mg TAB PO PRN (20:20)
[2021-09-09] MEDS: LACTATED RINGER'S 1,000 ML IV SCH (20:21)
[2021-09-09] MEDS: FLUTICASONE PROPIONATE NA SPR 16 GM BTL SCH (22:25)
[2021-09-10] MEDS: PIPERACILLIN/TAZOBACTAM 3.375 GM in DEXTROSE 5% 100 ML IV SCH ×3 (02:32→18:17)
[2021-09-10] MEDS: oxyCODONE/ACETAMINOPHEN 5mg/325mg TAB PO PRN ×2 (02:44→07:34)
--- NOTE | 2021-09-10 06:35 | Operative Report (OR) ---
DATE OF PROCEDURE: 09/09/2021 PREOPERATIVE DIAGNOSES: Acute cholecystitis, cholelithiasis. POSTOPERATIVE DIAGNOSES: Acute cholecystitis, cholelithiasis. OPERATION: Laparoscopic cholecystectomy. SURGEON: Francoise Vieira MD. ANESTHESIA: General. ESTIMATED BLOOD LOSS: About 30 mL FINDINGS: Significant inflammation on the gallbladder wall and one small portion of the liver howeve r was adherent to anterior gallbladder wall. COMPLICATIONS: None. INDICATIONS FOR THE PROCEDURE: This is a 45-year-old gentleman who presented to ED with 1-day histor y of right upper quadrant pain. The patient had a CT scan diagnosis of acute cholecystitis, cholelit hiasis and I recommended to do laparoscopic cholecystectomy, possible open, possible cholangiogram. I did talk to the patient about the benefit, risk, alternate procedure. I indicated the risks may in clude, but not limited to, such as bleeding, infection, injury to other organs, remaining stone, inci sional hernia, bile leak, may need ERCP. The patient understands. He signed informed consent and I answered all questions. DETAILS OF PROCEDURE: After we identified the patient and verified the procedure, we brought the pat ient to the OR, put the patient in the supine position on the OR table. The patient received SCD on bilateral legs to prevent DVT. Also, the patient received 2 grams of Ancef IV for prophylactic antib iotic. The patient received general anesthesia without difficulty. The abdomen was prepped and drap ed in routine sterile fashion. After timeout, I injected the local anesthesia by using 1% lidocaine mixed with 0.5% Marcaine just above the umbilicus, then I made a small incision just above umbilicus, opened fascia, opened peritoneum. Under direct vision, put a Saturnino trocar in, connected to CO2 to create pneumoperitoneum, flow rate at 6 liters per minute, pressure not more than 14 mmHg. Once we got a nice pneumoperitoneum, we put a camera in, looked around the abdomen, it shows a normal finding on the liver; however, the gallbladder showed significant inflammation on the gallbladder wa ll, gallbladder distention and also the patient had one small piece, size about 3 x 3 cm of liver ad herent to the anterior gallbladder wall. At this moment, we put another two 5 mm trocars on the righ t upper quadrant, one 12 trocar on the epigastric incision. Once all trocars in, and we used a large needle to decompress the gallbladder first and then we used the grasper to hold the base of gallblad sheela, put in the direction to the diaphragm, another grasper to hold the pouch of gallbladder, put a l ateral to explore the triangle of Calot. The cystic duct was identified and mobilized. The cystic d uct was significantly enlarged nearly 1 cm. I chose 10 mm metal clips, put two clips on the proximal cystic duct, one on the distal cystic duct, then used a scissor for transection of cystic duct and r echecked and no bile leak. Cystic artery was identified and mobilized. I put two 5 mm metal clips o n the proximal cystic artery, one on the distal cystic artery, then used a scissor for transection of cystic artery, rechecked and no active bleeding; however, because of the liver adherent to the gallb ladder, we used the Bovie to peel the liver away and at this moment, we had to use the Endo-ARSALAN stapl er for transection of half the gallbladder and then we were be able to see the remainder of the gallb ladder and we used another Endo-ARSALAN stapler for transection of the whole gallbladder away from the li nicky, rechecked, no active bleeding and the whole gallbladder, we removed, divided in 2 pieces. At th is moment, rechecked, no active bleeding and in order to prevent the bleeding, I put Surgicel and Venancio Seal on the liver bed. Then, we removed gallbladder through the catch bag. Then, we reinserted the Saturnino trocar in, connected to CO2 to create pneumoperitoneum, again looked a round the abdomen, no active bleeding from the liver bed and then we put one 10 mm JOHAN drainage on the liver bed using 2-0 silk sutured the drainage on the skin. Then, we removed all trocars under direc t vision. No active bleeding from the trocar sites. Pneumoperitoneum was released, then I closed th e umbilical incision fascial layer by using 0 Vicryl [id number] x2, closed subcutaneous layer by using 2-0 Vicryl interruptedly, closed skin by using 4-0 Vicryl continuous running, closed the epiga stric incision fascial layer by using 0 Vicryl [id number] x2, closed subcutaneous layer by using 2-0 Vicryl interruptedly, closed skin by using 4-0 Vicryl interruptedly, closed another two 5 mm tro car site of skin only by using 4-0 Vicryl. Then, we put the dressing on. The patient tolerated the procedure well. All instrument, needle and sponge counts were correct x2 at the end of the case. Th e patient was transferred to recovery room in stable condition. The specimen was sent to pathology. After the procedure, I did talk to the patient about the OR finding and the procedure we did. Also, I recommend admitting the patient to the hospital overnight. The patient understands. He agreed. I answered all questions. Job ID: [id number]
[2021-09-10] MEDS: HYDROmorphone INJ 1 MG/ML SYRINGE IV PRN (07:02)
[2021-09-10 07:10] LABS: Basophils # (auto) 0.02 K/uL (0-0.2); Basophils % (auto) 0.2 %; Eosinophils # (auto) 0.02 K/uL (0-0.50); Eosinophils % (auto) 0.2 %; Hematocrit (blood only) 41.6 % (40.1-51.0); Hemoglobin 13.9 g/dl (14.0-18.0); Immature Granulocytes # (auto) 0.03 K/uL (0.00-0.02); Immature Granulocytes % (auto) 0.3 %; Lymphocytes # (auto) 1.81 K/uL (1.2-3.4); Lymphocytes % (auto) 16.5 %; Mean Corpuscular Hemoglobin 30.5 pg (25.0-34.0); Mean Corpuscular Hgb Conc 33.4 g/dL (32.0-36.0); Mean Corpuscular Volume 91.4 fL (80.0-100.0); Mean Platelet Volume 9.5 fL (9.4-12.4); Monocytes # (auto) 0.87 K/uL (0.24-0.82); Monocytes % (auto) 7.9 %; Neutrophils % (auto) 74.9 %; Platelet Count 217 K/uL (130-400); RDW Coefficient of Variation 12.7 % (11.5-14.5); RDW Standard Deviation 42.4 fL (36.4-46.3); Red Blood Count 4.55 M/uL (4.63-6.08); White Blood Count 10.95 K/ul (4.8-10.8)
[2021-09-10] MEDS: MELOXICAM 7.5 MG TAB PO SCH (08:42)
[2021-09-10] MEDS: FLUTICASONE PROPIONATE NA SPR 16 GM BTL SCH ×2 (08:44→21:52)
[2021-09-10 09:48] LABS: Albumin Globulin Ratio 1.4 (0.9-2); Albumin Level 3.8 gm/dl (3.4-5.0); BUN Creatinine Ratio 12.1 (10-20); Bilirubin,Total 1.4 mg/dl (0.2-1.0); Calcium 8.6 mg/dl (8.5-10.1); Creatinine Clr Calc Pharmacy 123.7 ml/min; Est GFR (African American) 106.2 ml/min; Est GFR (Non-African American) 91.6 ml/min; Globulin 2.7 gm/dl (2.5-4.0); Potassium 4.2 mmol/L (3.5-5.1); Total Protein 6.5 gm/dl (6.0-8.3)
--- NOTE | 2021-09-10 12:13 | Surgery Progress Note ---
Date of Service September 10, 2021 Assessment & Plan (1) Acute cholecystitis due to biliary calculus: Plan: pt is a 45 year-old male who presents to Er with one day history RUQ pain, IMP: acute cholecystitis, cholelithiasis, Plan, I recommend to do laparoscopic cholecystectomy, possible open or cholangiogram, D/W benefits, risks and alternatives of the surgery, the risks- infection, bleeding, injury other organs, incisional hernia, may need ERCP, pt understood, he agrees with surgery, he signed informed consent, I answered all questions, pre-op iv antibiotic, 09/10/2021 12:14Pm. F/U S/P lap luc, POD 1 pt is doing fine, ( T) bili 1.4, regular diet, repeat labs in morning, possible D/C home tomorrow, will F/U, I updated pt about OR finding and the procedure pt had, pt understood, I answered all questions, Admission and Anticipated Discharge Date Admission Date: September 09, 2021 Subjective F/U S/P laparoscopic cholecystectomy, POD 1, pt feels better, less abdominal pain, no nausea, no vomiting, no fever, JOHAN-220ml clera fluid, Review of Systems Constitutional: as per Subjective / HPI obesity Eyes: as per Subjective / HPI Respiratory: as per Subjective / HPI Cardiovascular: as per Subjective / HPI Gastrointestinal: as per Subjective / HPI Genitourinary: + as per Subjective / HPI Neurologic: as per Subjective / HPI Psychiatric: as per Subjective / HPI Endocrine: as per Subjective / HPI Hematologic / Lymphatic: as per Subjective / HPI Physical Exam Eyes: PERRL, conjunctivae normal, anicteric sclerae Neck: trachea midline, no thyromegaly Respiratory: normal respiratory effort, lungs clear to auscultation Cardiovascular: RRR, no murmur, no edema Gastrointestinal (Abdomen): soft, mild tenderness at incision site, no rebound pain, no distend, all incisions intact, no redness, BS + Musculoskeletal: no cyanosis or clubbing, extremities motor strength 5/5 Neurologic: patellar DTR's 2+ bilat, sensation intact Psychiatric: A+Ox3, euthymic affect Results & Data ([facility]) Vital Signs (Past 12 Hours) Vital Signs Temp Pulse Pulse Resp BP Pulse Ox O2 Del Method 09/10/21 07:12 36.7 C 56 L 16 127/78 98 Room Air 09/10/21 02:51 36.7 C 66 18 123/74 91 Room Air Laboratory Results Abnormal lab results 09/10/21 09/10/21 Range/Units 05:47 05:47 WBC 10.95 H (4.8-10.8) K/ul RBC 4.55 L (4.63-6.08) M/uL Hgb 13.9 L (14.0-18.0) g/dl Neut # (Auto) 8.20 H (1.4-6.5) K/uL [place] # (Auto) 0.87 H (0.24-0.82) K/uL Immature Gran # (Auto) 0.03 H (0.00-0.02) K/uL Glucose 109 H (70-99(Fasting)) mg/dl Total Bilirubin 1.4 H D (0.2-1.0) mg/dl ALT 58 H (7-52) U/L
[2021-09-10] MEDS: LACTATED RINGER'S 1,000 ML IV SCH (22:05)
[2021-09-11] MEDS: PIPERACILLIN/TAZOBACTAM 3.375 GM in DEXTROSE 5% 100 ML IV SCH ×3 (01:34→18:03)
[2021-09-11] MEDS: FLUTICASONE PROPIONATE NA SPR 16 GM BTL SCH ×2 (07:25→20:21)
[2021-09-11] MEDS: LACTATED RINGER'S 1,000 ML IV SCH ×2 (07:25→22:11)
[2021-09-11] MEDS: MELOXICAM 7.5 MG TAB PO SCH (07:25)
[2021-09-11 09:17] LABS: Basophils # (auto) 0.03 K/uL (0-0.2); Basophils % (auto) 0.3 %; Eosinophils % (auto) 1.1 %; Hematocrit (blood only) 43.9 % (40.1-51.0); Hemoglobin 14.7 g/dl (14.0-18.0); Immature Granulocytes # (auto) 0.03 K/uL (0.00-0.02); Immature Granulocytes % (auto) 0.3 %; Lymphocytes # (auto) 3.25 K/uL (1.2-3.4); Lymphocytes % (auto) 37.2 %; Mean Corpuscular Hemoglobin 31.1 pg (25.0-34.0); Mean Corpuscular Hgb Conc 33.5 g/dL (32.0-36.0); Mean Corpuscular Volume 92.8 fL (80.0-100.0); Mean Platelet Volume 9.2 fL (9.4-12.4); Monocytes # (auto) 0.73 K/uL (0.24-0.82); Monocytes % (auto) 8.4 %; Neutrophils # (auto) 4.59 K/uL (1.4-6.5); Neutrophils % (auto) 52.7 %; Platelet Count 191 K/uL (130-400); RDW Coefficient of Variation 12.5 % (11.5-14.5); RDW Standard Deviation 42.7 fL (36.4-46.3); Red Blood Count 4.73 M/uL (4.63-6.08); White Blood Count 8.73 K/ul (4.8-10.8)
[2021-09-11 09:51] LABS: Albumin Globulin Ratio 1.3 (0.9-2); Albumin Level 3.9 gm/dl (3.4-5.0); BUN Creatinine Ratio 10.1 (10-20); Bilirubin,Total 1.7 mg/dl (0.2-1.0); Calcium 8.6 mg/dl (8.5-10.1); Creatinine Clr Calc Pharmacy 112.4 ml/min; Est GFR (African American) 94.5 ml/min; Est GFR (Non-African American) 81.5 ml/min; Potassium 3.7 mmol/L (3.5-5.1); Total Protein 6.9 gm/dl (6.0-8.3)
[2021-09-11] MEDS ORDERED: ONDANSETRON INJ 2 MG/ML 2 ML VIAL IV PRN (10:22)
--- NOTE | 2021-09-11 10:54 | Gastrointestinal Consultation ---
Date of Consultation September 11, 2021 Assessment & Plan (1) Acute cholecystitis: 45 year old male POD#2 ccy for acute cholecystitis, GI asked to evaluate for elevated Tbili. He has drain in place which he notes has been producing low volume bloody output, which has decreased in volume and is less bloody NPO for MRCP Thank you for allowing us to participate in the care of this patient. Please call with any acute changes, questions or concerns. Please see addendum below with additional recommendation from my supervising physician. Supervising Physician Co-Signing Physician Notes I have seen and examined the patient with DANNY Luna whose note reflects our findings and plan. s/p cholecystectomy. Bili elevated. Decrease in drain output noted. MRCP ordered and to be done later today. History of Present Illness Reason for Consultation: elevated Tbili Requesting Physician: Dariel Attending Physician: Francoise Vieira MD History of Present Illness 45 year old male admitted with acute cholecystitis, gallstones POD #2, GI asked to evaluate for elevated Tbili. Pt was seen and evaluated, chart reviewed. Notes he is feeling better. Pain improving. No nausea. No vomiting. Denies black or bloody stools. He has drain in place. 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 Frustrated. Wants to go home. No white count Tb 0.9 --> 1.4 --> 1.7 AST 64 --> 58 --> 75 ALKP 73 --> 66 --> 62 CTAP 2021: Mild gallbladder wall thickening with mild adjacent inflammatory change/edema. There appears to be a punctate gas-containing stone at the gallbladder neck. Therefore, this is highly suspicious for acute cholecystitis. Surgical consultation recommended. No bowel wall thickening or obstruction. A few subcentimeter low suspicion nodules at the lung bases measuring up to 3 mm. Allergies Allergy/AdvReac Type Severity Reaction Status Date / Time ibuprofen Allergy Severe ANAPHYLAXIS Verified 09/09/21 12:17 Home Medications Medication Instructions Recorded Confirmed Type fluticasone propionate 50 2 spray intranasal BID 09/09/21 09/09/21 History mcg/actuation nasal spray,suspension (24 Hour Allergy Relief) meloxicam 7.5 mg tablet 7.5 mg PO QAM 09/09/21 09/09/21 History Patient History Social History Smoking Status: Never smoker Tobacco Type: Smokeless Tobacco (Dip or Chew) Do You Dip or Chew Tobacco: Yes; Hx Alcohol Use: Yes Alcohol type: beer Hx Substance Use: No Preferred Language: Gambian Register Of Deeds Required: No Beliefs That Will Affect Care: None Current Living Situation: Spouse Feels Safe at Home: Yes Safety Concerns: Feels Safe At This Time Assistive Devices: None Review of Systems Review of Systems: All systems reviewed & are unremarkable except as noted in HPI & below Physical Exam Constitutional: WD/WN, vitals as above Respiratory: normal respiratory effort; no respiratory distress Cardiovascular: Rate/Rhythm: regular rate Gastrointestinal (Abdomen): Percussion/Palpation: abdomen soft +drain in place Skin: no rashes, warm and dry Results & Data ([facility]) Vital Signs (Past 12 Hours) Vital Signs Temp Pulse Resp BP Pulse Ox O2 Del Method 09/11/21 07:21 36.5 C 51 L 14 122/71 94 Room Air Laboratory Results 09/11/21 09/11/21 Range/Units 08:19 08:19 WBC 8.73 (4.8-10.8) K/ul RBC 4.73 (4.63-6.08) M/uL Hgb 14.7 (14.0-18.0) g/dl Hct 43.9 (40.1-51.0) % MCV 92.8 (80.0-100.0) fL MCH 31.1 (25.0-34.0) pg MCHC 33.5 (32.0-36.0) g/dL RDW Std Deviation 42.7 (36.4-46.3) fL RDW Coeff of Keegan 12.5 (11.5-14.5) % Plt Count 191 (130-400) K/uL MPV 9.2 L (9.4-12.4) fL Immature Gran % (Auto) 0.3 % Neut % (Auto) 52.7 % Lymph % (Auto) 37.2 % Divide % (Auto) 8.4 % Eos % (Auto) 1.1 % Baso % (Auto) 0.3 % Neut # (Auto) 4.59 (1.4-6.5) K/uL Lymph # (Auto) 3.25 (1.2-3.4) K/uL Divide # (Auto) 0.73 (0.24-0.82) K/uL Eos # (Auto) 0.10 (0-0.50) K/uL Baso # (Auto) 0.03 (0-0.2) K/uL Immature Gran # (Auto) 0.03 H (0.00-0.02) K/uL Sodium 140 (136-145) mmol/L Potassium 3.7 (3.5-5.1) mmol/L Chloride 103 (98-107) mmol/L Carbon Dioxide 31 (21-32) mmol/L Anion Gap 6 (3-11) BUN 11 (6-23) mg/dl Creatinine 1.09 (0.6-1.4) mg/dl Est Cr Clr Drug Dosing 112.4 ml/min Est GFR ( Amer) 94.5 ml/min Est GFR (Non-Af Amer) 81.5 ml/min BUN/Creatinine Ratio 10.1 (10-20) Glucose 98 (70-99(Fasting)) mg/dl Calcium 8.6 (8.5-10.1) mg/dl Total Bilirubin 1.7 H (0.2-1.0) mg/dl AST 36 (13-39) U/L ALT 75 H (7-52) U/L Alkaline Phosphatase 62 (34-104) U/L Total Protein 6.9 (6.0-8.3) gm/dl Albumin 3.9 (3.4-5.0) gm/dl Globulin 3.0 (2.5-4.0) gm/dl Albumin/Globulin Ratio 1.3 (0.9-2)
--- NOTE | 2021-09-11 11:40 | Surgery Progress Note ---
Date of Service September 11, 2021 Assessment & Plan (1) Acute cholecystitis due to biliary calculus: Plan: pt is a 45 year-old male who presents to Er with one day history RUQ pain, IMP: acute cholecystitis, cholelithiasis, Plan, I recommend to do laparoscopic cholecystectomy, possible open or cholangiogram, D/W benefits, risks and alternatives of the surgery, the risks- infection, bleeding, injury other organs, incisional hernia, may need ERCP, pt understood, he agrees with surgery, he signed informed consent, I answered all questions, pre-op iv antibiotic, 09/10/2021 12:14Pm. F/U S/P lap luc, POD 1 pt is doing fine, ( T) bili 1.4, regular diet, repeat labs in morning, possible D/C home tomorrow, will F/U, I updated pt about OR finding and the procedure pt had, pt understood, I answered all questions, 09/11/2021 11:43Am. F/U S/P lap luc, POD 2 pt is doing fine, ( T) bili 1.7, I recommend to consult GI for ERCP to R/O CBD stone, D/W benefits, risks and alternatives of the ERCP, pt understood, he agrees with it, I answered all questions, NPO now, will F/U Admission and Anticipated Discharge Date Admission Date: September 09, 2021 Subjective F/U S/P laparoscopic cholecystectomy, POD 1, pt feels better, less abdominal pain, no nausea, no vomiting, no fever, JOHAN-220ml clera fluid, 09/11/2021 11:39AM, F/U S/P laparoscopic cholecystectomy, POD 1, pt is doing fine, tolerated regular diet, less abdominal pain, no nausea, no vomiting, no fever, JOHAN-100ml clear fluid, Review of Systems Constitutional: as per Subjective / HPI obesity Eyes: as per Subjective / HPI Respiratory: as per Subjective / HPI Cardiovascular: as per Subjective / HPI Gastrointestinal: as per Subjective / HPI Genitourinary: + as per Subjective / HPI Neurologic: as per Subjective / HPI Psychiatric: as per Subjective / HPI Endocrine: as per Subjective / HPI Hematologic / Lymphatic: as per Subjective / HPI Physical Exam Eyes: PERRL, conjunctivae normal, anicteric sclerae Neck: trachea midline, no thyromegaly Respiratory: normal respiratory effort, lungs clear to auscultation Cardiovascular: RRR, no murmur, no edema Gastrointestinal (Abdomen): soft, mild tenderness at incision site, no rebound pain, no distend, BS +, JOHAN intact, Musculoskeletal: no cyanosis or clubbing, extremities motor strength 5/5 Neurologic: patellar DTR's 2+ bilat, sensation intact Psychiatric: A+Ox3, euthymic affect Results & Data ([facility]) Vital Signs (Past 12 Hours) Vital Signs Temp Pulse Resp BP Pulse Ox O2 Del Method 09/11/21 07:21 36.5 C 51 L 14 122/71 94 Room Air Laboratory Results Abnormal lab results 09/11/21 09/11/21 Range/Units 08:19 08:19 MPV 9.2 L (9.4-12.4) fL Immature Gran # (Auto) 0.03 H (0.00-0.02) K/uL Total Bilirubin 1.7 H (0.2-1.0) mg/dl ALT 75 H (7-52) U/L
--- NOTE | 2021-09-11 14:42 | XRay Report ---
ORBIT RADIOGRAPHS 3 VIEWS HISTORY: pre-MRI screening. COMPARISON: None. FINDINGS: There are no radiopaque foreign bodies identified within the orbits. IMPRESSION: No radiopaque foreign bodies identified within the orbits. ACT 112: Negative or not required by law. Electronically signed by: Ulises Caldwell M.D. 09/11/2021 2:40 PM
[2021-09-11] MEDS ORDERED: LORazepam 0.5 MG TAB PO STA ×2 (15:07→16:41)
--- NOTE | 2021-09-11 18:31 | Magnetic Resonance Report ---
MRCP CLINICAL HISTORY: Generalized abdominal pain status post cholecystectomy. COMPARISON STUDY: Abdominal CT dated 09/09/2021. TECHNIQUE: Abdominal MRCP is performed utilizing various T2-weighted sequences in the axial and coron al planes. IV contrast was not administered for this examination. 3-D reformats are created and asses sed. The examination is degraded by motion artifact. FINDINGS: The gallbladder is surgically absent. There is no intra or extrahepatic biliary ductal dilatation. Th e common bile duct measures up to 3 mm in diameter. No intraluminal filling defects are seen to sugge st choledocholithiasis. The pancreatic duct is normal in caliber. There is an approximately 4.3 x 2.5 cm pocket of complex fluid in the gallbladder fossa seen on axial image #13 of the FIESTA series. The unenhanced liver, spleen, adrenal glands, pancreas, and kidneys are grossly normal. There is no abdominal ascites. The abdominal aorta is normal in caliber. No bowel obstruction is identified. There are trace pleural effusions with dependent atelectasis. There is no evidence of destructive osseous lesion. IMPRESSION: 1. Normal MRCP noting status post cholecystectomy. 2. There is no evidence of choledocholithiasis. 3. A 4.3 x 2.5 cm pocket of complex fluid in the gallbladder fossa is nonspecific and may represent e xpected postoperative change such as a small seroma or hematoma. Clinical correlation will be require d. Dictated: 09/11/2021 6:02 PM Transcribed: 09/11/2021 6:27 PM Alley [id number] FLORIN_Jake Electronically signed by: Asif Azar M.D. 09/11/2021 6:30 PM
[2021-09-12] MEDS: PIPERACILLIN/TAZOBACTAM 3.375 GM in DEXTROSE 5% 100 ML IV SCH ×3 (02:03→18:02)
[2021-09-12] MEDS ORDERED: LORazepam 2 MG/1 ML VIAL IV PRN (09:01)
[2021-09-12 09:18] LABS: Albumin Globulin Ratio 1.3 (0.9-2); Albumin Level 3.9 gm/dl (3.4-5.0); BUN Creatinine Ratio 10.1 (10-20); Bilirubin Direct 0.3 mg/dl (0-0.2); Bilirubin,Total 1.9 mg/dl (0.2-1.0); Calcium 8.8 mg/dl (8.5-10.1); Creatinine Clr Calc Pharmacy 123.7 ml/min; Est GFR (African American) 106.2 ml/min; Est GFR (Non-African American) 91.6 ml/min; Globulin 3.1 gm/dl (2.5-4.0); Potassium 3.9 mmol/L (3.5-5.1)
[2021-09-12] MEDS: LACTATED RINGER'S 1,000 ML IV SCH (09:37)
[2021-09-12] MEDS: MELOXICAM 7.5 MG TAB PO SCH (09:38)
[2021-09-12] MEDS: FLUTICASONE PROPIONATE NA SPR 16 GM BTL SCH ×2 (09:38→20:03)
[2021-09-12] MEDS: LORazepam 0.5 MG TAB PO PRN ×2 (09:50→22:08)
--- NOTE | 2021-09-12 09:50 | Communication Note ---
Date of Service: September 12, 2021 Pt was seen and evaluated, chart reviewed. MRCP reviewed. No CBD stone. Fluid collection noted. No abd pain, nausea, vomiting. Drain in place, appears bloody but surgery question bilious tint to fluid. Await AM labs. Keep NPO for potential ERCP.
--- NOTE | 2021-09-12 10:37 | Surgery Progress Note ---
Date of Service September 12, 2021 Assessment & Plan (1) Acute cholecystitis due to biliary calculus: Plan: pt is a 45 year-old male who presents to Er with one day history RUQ pain, IMP: acute cholecystitis, cholelithiasis, Plan, I recommend to do laparoscopic cholecystectomy, possible open or cholangiogram, D/W benefits, risks and alternatives of the surgery, the risks- infection, bleeding, injury other organs, incisional hernia, may need ERCP, pt understood, he agrees with surgery, he signed informed consent, I answered all questions, pre-op iv antibiotic, 09/10/2021 12:14Pm. F/U S/P lap luc, POD 1 pt is doing fine, ( T) bili 1.4, regular diet, repeat labs in morning, possible D/C home tomorrow, will F/U, I updated pt about OR finding and the procedure pt had, pt understood, I answered all questions, 09/11/2021 11:43Am. F/U S/P lap luc, POD 2 pt is doing fine, ( T) bili 1.7, I recommend to consult GI for ERCP to R/O CBD stone, D/W benefits, risks and alternatives of the ERCP, pt understood, he agrees with it, I answered all questions, NPO now, will F/U 09/12/2021 10:43Am. F/U S/P lap luc, POD 3 pt is doing fine, ( T) bili 1.9, I recommend to do ERCP to R/O CBD stone, pt understood, he agrees with ERCP, will F/U, Admission and Anticipated Discharge Date Admission Date: September 09, 2021 Supervising Physician Co-Signing Physician Notes I have seen and examined the patient with DANNY Luna whose note reflects our findings and plan. s/p cholecystectomy. Bili elevated. Decrease in drain output noted. MRCP ordered and to be done later today. Subjective F/U S/P laparoscopic cholecystectomy, POD 1, pt feels better, less abdominal pain, no nausea, no vomiting, no fever, JOHAN-220ml clera fluid, 09/11/2021 11:39AM, F/U S/P laparoscopic cholecystectomy, POD 2, pt is doing fine, tolerated regular diet, less abdominal pain, no nausea, no vomiting, no fever, JOHAN-100ml clear fluid, 09/12/2021 10:39AM, F/U S/P laparoscopic cholecystectomy, POD 3, no significant abdominal pain, no fever, JOHAN 190ml, ( T) bilirubin 1.9, Review of Systems Constitutional: as per Subjective / HPI obesity Eyes: as per Subjective / HPI Respiratory: as per Subjective / HPI Cardiovascular: as per Subjective / HPI Gastrointestinal: as per Subjective / HPI Genitourinary: + as per Subjective / HPI Neurologic: as per Subjective / HPI Psychiatric: as per Subjective / HPI Endocrine: as per Subjective / HPI Hematologic / Lymphatic: as per Subjective / HPI Physical Exam Eyes: PERRL, conjunctivae normal, anicteric sclerae Neck: trachea midline, no thyromegaly Respiratory: normal respiratory effort, lungs clear to auscultation Cardiovascular: RRR, no murmur, no edema Gastrointestinal (Abdomen): soft, NT, ND, all incisions heal well , no redness, JOHAN intact Musculoskeletal: no cyanosis or clubbing, extremities motor strength 5/5 Neurologic: patellar DTR's 2+ bilat, sensation intact Psychiatric: A+Ox3, euthymic affect Results & Data ([facility]) Vital Signs (Past 12 Hours) Vital Signs Temp Pulse Resp BP Pulse Ox O2 Del Method 09/12/21 07:44 36.8 C 56 L 16 131/72 94 Room Air 09/11/21 23:33 36.7 C 57 L 16 131/80 95 Room Air Laboratory Results Abnormal lab results 09/12/21 Range/Units 08:16 Total Bilirubin 1.9 H (0.2-1.0) mg/dl Direct Bilirubin 0.3 H (0-0.2) mg/dl AST 40 H (13-39) U/L ALT 86 H (7-52) U/L
[2021-09-12] MEDS ORDERED: ONDANSETRON INJ 2 MG/ML 2 ML VIAL IV PRN (14:43)
[2021-09-12] MEDS ORDERED: ePHEDrine sulfate 50 MG/ML AMP IV PRN (14:43)
[2021-09-12] MEDS ORDERED: ATROPINE SULFATE 0.1 MG/ML 10ML SYR IV PRN (14:43)
[2021-09-12] MEDS ORDERED: fentaNYL citrate 100 MCG/2 ML VIAL IV PRN (14:43)
[2021-09-12] MEDS ORDERED: PROMETHAZINE HCL 6.25 MG in SODIUM CHLORIDE 0.9% 50 ML IV PRN (14:43)
--- NOTE | 2021-09-12 14:43 | Anesthesiology Consultation ---
Date of Service September 12, 2021 Assessment & Plan Chart Review Chart Review: Acceptable Risk for Surgery and Patient NOT seen in Pre Admission Testing Consults Requested none ASA ASA2 Proposed Anesthesia Anesthesia Type: General Risk / Benefits Reviewed With: PT / POA / Parent / Guardian, Accepts Plan and Informed Consent Obtained History Surgery Operation Date: 09/09/21 15:00 Proposed Procedures p Laparoscopic Cholecystectomy - Francoise Vieira MD Operation Date: 09/12/21 09:45 Proposed Procedures p Endoscopic Retrograde Cholangiopancreato - Florencia Martel DO Height/Weight Height: 6 ft Weight: 115.7 kg Allergies Allergy/AdvReac Type Severity Reaction Status Date / Time ibuprofen Allergy Severe ANAPHYLAXIS Verified 09/09/21 12:17 Medications Home Medications Medication Instructions Recorded Confirmed Last Taken fluticasone propionate 50 2 spray intranasal BID 09/09/21 09/09/21 Unknown mcg/actuation nasal spray,suspension (24 Hour Allergy Relief) meloxicam 7.5 mg tablet 7.5 mg PO QAM 09/09/21 09/09/21 Unknown Active Medications Generic Name Dose Route Start Last Admin Trade Name Freq PRN Reason Stop Dose Admin Fluticasone Propionate 2 sprays 09/09/21 21:00 09/12/21 09:38 Fluticasone Propionate Na Spr 16 Gm Btl NA 10/09/21 20:59 Not Given BID HAL Hydromorphone HCl 1 mg 09/09/21 19:54 09/10/21 07:02 Hydromorphone Inj 1 Mg/Ml Syringe IV 09/23/21 19:53 1 mg Q6H PRN Administration Pain Lactated Ringer's 1,000 mls @ 80 mls/hr 09/09/21 19:54 09/12/21 13:47 Lr IV 10/09/21 19:53 0 mls/hr .[id number] HAL Infusion Piperacillin Sod/Tazobactam 115 mls @ 28.75 mls/hr 09/10/21 02:00 09/12/21 13:47 Sod 3.375 gm/ Dextrose IV 09/19/21 13:59 Infused Q8H HAL Infusion Protocol Lorazepam 0.5 mg 09/12/21 09:23 09/12/21 09:50 Lorazepam 0.5 Mg Tab PO 10/12/21 09:22 0.5 mg Q3H PRN Administration Anxiety Meloxicam 7.5 mg 09/10/21 09:00 09/12/21 09:38 Meloxicam 7.5 Mg Tab PO 10/10/21 08:59 7.5 mg QAM HAL Administration Oxycodone/Acetaminophen 1 tab 09/09/21 19:54 09/10/21 07:34 Oxycodone/Acetaminophen 5mg/325mg Tab PO 09/23/21 19:53 1 tab Q4H PRN Administration Pain NPO Date Last Intake of Fluids: 09/11/21 Time Last Intake of Fluids: 11:00 Last Intake of Fluids Comment: patient states vomited after Date Last Intake of Solids: 09/11/21 Time Last Intake of Solids: 09:00 Exercise / Class Metabolic Activity II 4-5 Yardwork/Stairs/Walk up hill Past Anesthesia History No Hx of Anesthesia Complications and No Family Hx of Anesthesia Complications History of PONV No Hx of PONV and No Hx of Motion Sickness Social History Smoking Status: Never smoker tobacco type: smokeless tobacco Do You Dip or Chew Tobacco: Yes Hx Alcohol Use: Yes Alcohol type: beer alcohol intake frequency: holidays/special occasions only Hx Substance Use: No substance use type: does not use Physical Exam Vital Signs Last Vital Signs Temp 36.8 C 09/12/21 14:25 Pulse 66 09/12/21 14:25 Resp 18 09/12/21 14:25 BP 148/81 H 09/12/21 14:25 Pulse Ox 96 09/12/21 14:25 O2 Del Method 09/12/21 14:25 O2 Flow Rate 2 09/09/21 21:45 ENMT Mouth: no dentition abnormality Thyromental Distance: > or= 3.5 Finger Breadths Mallampati Class: II Neck normal visual inspection Respiratory normal respiratory effort Auscultation: lungs clear to auscultation bilaterally Cardiovascular Rate/Rhythm: regular rate and regular rhythm Psychiatric Orientation: alert Testing Laboratory Results 09/11/21 08:19 09/12/21 08:16 Urine Color Yellow 09/09/21 07:50 Urine Appearance Clear (Clear) 09/09/21 07:50 Urine pH 5.0 (4.5-7.5) 09/09/21 07:50 Ur Specific [place] 1.024 (1.000-1.030) 09/09/21 07:50 Urine Protein Negative (Negative) 09/09/21 07:50 Urine Glucose (UA) Negative (Negative) 09/09/21 07:50 Urine Ketones Negative (Negative) 09/09/21 07:50 Urine Nitrite Negative (Negative) 09/09/21 07:50 Ur Leukocyte Esterase Negative (Negative) 09/09/21 07:50
[2021-09-12] MEDS ORDERED: INDOMETHACIN 50 MG SUPP PR ONE (14:56)
--- NOTE | 2021-09-12 14:56 | History & Physical Bridge Note ---
Date of Service September 12, 2021 History & Physical Bridge Note I have examined the patient, reviewed the History & Physical and in the interval since the performance of the History & Physical I have noted the following changes of clinical significance: no changes noted. Should underwent a cholecystectomy over the weekend and initially was doing well postoperatively. Over the last 48 hours he appears to have developed some bilious drainage from his JOHAN drain site. After discussion with his general surgeon they would like me to proceed with ERCP today for biliary stent placement for treatment of a bile leak. I discussed the risks of ERCP with the patient to include bleeding, pain, pancreatitis, failed biliary cannulation, and need for follow-up studies.
[2021-09-12] MEDS ORDERED: MIDAZOLAM HCL 1 MG/ML 2ML VIAL ONE (15:02)
[2021-09-12] MEDS ORDERED: KETAMINE 50 MG/5 ML SYRINGE ONE (15:03)
[2021-09-12] MEDS ORDERED: PROPOFOL IV EMULSION 10 MG/ML 20 ML VIAL IV ONE (15:39)
[2021-09-12] MEDS ORDERED: ONDANSETRON INJ 2 MG/ML 2 ML VIAL ONE (15:39)
[2021-09-12] MEDS ORDERED: LIDOCAINE 2% MPF LOCAL 5 ML VIAL INFIL ONE (15:39)
--- NOTE | 2021-09-12 15:53 | Fluoroscopy Report ---
INTRAOPERATIVE RADIOGRAPHS CLINICAL HISTORY: ERCP. Fluoroscopy time: 32 seconds. FINDINGS: 7 spot fluoroscopic views of the right upper quadrant are correlated with MRCP dated 022. A surgical drain and cholecystectomy clips are noted in the right upper quadrant. A catheter is placed in the common bile duct which is opacified by contrast. There is no intra or extrahepatic rowena iary ductal dilatation. There are no filling defects to suggest choledocholithiasis. The final image shows a common bile duct stent in place. IMPRESSION: Intraoperative ERCP images as above. Electronically signed by: Asif Azar M.D. 09/12/2021 3:52 PM
--- NOTE | 2021-09-12 16:01 | Post Operative Brief Note ---
Immediate Post Op Note v1 Date of Surgery September 12, 2021 Pre & Post Diagnosis Operation Date: 09/12/21 09:45 Pre-Op Diagnosis: VOMITING, LOWER ABD PAIN Post-Op Diagnosis: Bile leak I identified the patient and participated in the time-out.: Yes Procedure Operation Date: 09/12/21 09:45 Actual Procedures p Endoscopic Retrograde Cholangiopancreato - Florencia Martel DO Surgeon Florencia Martel DO Operations Tech outer diameter technician Estimated Blood Loss 30 Findings Consistent with Post-Op Diagnosis Specimens gallbladder Drains Edward-Sanchez Drain Anesthesia Type General
--- NOTE | 2021-09-12 16:02 | Communication Note ---
Date of Service: September 12, 2021 At ERCP this afternoon for suspected bile leak. I do have evidence of papillary stenosis and leakage of bile from the cystic duct remnant. A biliary sphin cterotomy was performed and a centimeter 10 [place] stent placed. Recommendations Continue IV hydration May have clear liquids Antibiotic coverage for total of 10 days Avoid NSAIDs for 1 week please Please call with questions GI to sign off repeat ERCP in 6 weeks for stent removal
[2021-09-12] MEDS ORDERED: FAMOTIDINE 10 MG in SYRINGE 3 ML IV ONE (16:15)
--- NOTE | 2021-09-12 16:19 | GI REPORT ---
Patient Name: Jt Che Procedure Date: 09/12/2021 3:12 PM Date of : 1975 Admit Type: Inpatient Age: 45 Gender: Male Attending MD: Florencia Martel DO Procedure: ERCP Providers: Florencia Martel DO Referring MD: Isai Ramírez Md Indications: Suspected bile leak Medicines: Monitored Anesthesia Care Complications: No immediate complications. Estimated blood loss: Minimal. Estimated Blood Loss: Estimated blood loss was minimal. Procedure: Pre-Anesthesia Assessment: - Prior to the procedure, a History and Physical was performed, and patient medications, allergies and sensitivities were reviewed. The patient's tolerance of previous anesthesia was reviewed. - The risks and benefits of the procedure and the sedation options and risks were discussed with the patient. All questions were answered and informed consent was obtained. - Patient identification and proposed procedure were verified prior to the procedure by the physician, the nurse and the chair. The procedure was verified in the procedure room. - Pre-procedure physical examination revealed no contraindications to sedation. - ASA Grade Assessment: II - A patient with mild systemic disease. - After reviewing the risks and benefits, the patient was deemed in satisfactory condition to undergo the procedure. - The anesthesia plan was to use monitored anesthesia care (MAC). - Immediately prior to administration of medications, the patient was re-assessed for adequacy to receive sedatives. - The heart rate, respiratory rate, oxygen saturations, blood pressure, adequacy of pulmonary ventilation, and response to care were monitored throughout the procedure. - The physical status of the patient was re-assessed after the procedure. After obtaining informed consent, the scope was passed under direct vision. Throughout the procedure, the patient's blood pressure, pulse, and oxygen saturations were monitored continuously. The Duodenoscope was introduced through the mouth, and advanced to the duodenum and used to inject contrast into the bile duct. The ERCP was accomplished without difficulty. The patient tolerated the procedure well. Findings: A college president film of the abdomen was obtained. Surgical clips, consistent with a previous cholecystectomy, were seen in the area of the right upper quadrant of the abdomen. The major papilla was normal. The bile duct was deeply cannulated with the short-nosed traction sphincterotome ([employer] [place] Cute) and 0.025 in Angled Visiglide guidewire (PD not cannulated or injected today). Contrast was injected. I personally interpreted the bile duct images. Contrast extended to the entire biliary tree. A cholecystectomy had been performed. The biliary orifice was stenotic. This appeared benign. Extravasation of contrast originating from the cystic duct was observed. Biliary sphincterotomy was made with a monofilament CleverCut distal wire sphincterotome using ERBE electrocautery. There was no post-sphincterotomy bleeding. One 10 Fr by 9 cm biliary stent with a single external flap and a single internal flap was placed 9 cm into the common bile duct. Bile flowed through the stent. The stent was in good position. The endoscope was withdrawn from the patient. Indomethacin 100 mg was given via suppository to decrease the risk of post-ERCP pancreatitis (PEP). Impression: - The major papilla appeared normal. - Biliary papillary stenosis, benign. - A bile leak was found from the cystic remanent. - The patient has had a cholecystectomy. - A biliary sphincterotomy was performed. - One biliary stent was placed into the common bile duct. - Indomethacin given to decrease risk of post-ERCP pancreatitis. Recommendation: - Avoid aspirin and nonsteroidal anti-inflammatory medicines for 1 week. - Clear liquid diet today. - Repeat ERCP in 6 weeks to remove stent. Florencia Martel D.O. Florencia Martel, 09/12/2021 4:18:57 PM This report has been signed electronically. Note Initiated On: 09/12/2021 3:12 PM Number of Addenda: 0 I attest to the content of the Intraoperative Record and orders documented therein, exceptions below {[id number]}
--- NOTE | 2021-09-12 16:49 | Anesthesiology Progress Note ---
Date of Service September 12, 2021 Anesthesia Post Procedure Vital Signs Vital Signs: Temp Pulse Pulse Resp BP Pulse Ox O2 Del Method 09/12/21 16:25 36.6 C 51 L 20 130/81 95 Room Air 09/12/21 16:15 53 L 20 148/85 H 96 Room Air 09/12/21 15:55 46 L 17 141/87 H 100 Oxymask 09/12/21 16:05 45 L 20 139/85 100 Room Air 09/12/21 15:49 36.2 C L 52 L 15 139/83 98 Oxymask 09/12/21 14:25 36.8 C 66 18 148/81 H 96 Room Air 09/12/21 07:44 36.8 C 56 L 16 131/72 94 Room Air 09/11/21 19:30 Room Air 09/11/21 23:33 36.7 C 57 L 16 131/80 95 Room Air O2 Flow Rate 09/12/21 16:25 09/12/21 16:15 09/12/21 15:55 8 09/12/21 16:05 09/12/21 15:49 8 09/12/21 14:25 09/12/21 07:44 09/11/21 19:30 09/11/21 23:33 Pain Intensity Abdomen: Pain Intensity: 5 Chest: Pain Intensity: 3 Transfer of Care Handoff Completed per policy Notes Mental Status: alert / awake / arousable Patient Amnestic to Procedure: Yes Nausea / Vomiting: adequately controlled Pain: adequately controlled Airway Patency, RR, SpO2: stable & adequate BP & HR: stable & adequate Hydration State: stable & adequate Anesthetic Complications: no major complications apparent
[2021-09-12] MEDS: HYDROmorphone INJ 1 MG/ML SYRINGE IV PRN (18:01)
[2021-09-13] MEDS: LACTATED RINGER'S 1,000 ML IV SCH (01:51)
[2021-09-13] MEDS: PIPERACILLIN/TAZOBACTAM 3.375 GM in DEXTROSE 5% 100 ML IV SCH (01:51)
[2021-09-13] MEDS: FLUTICASONE PROPIONATE NA SPR 16 GM BTL SCH (08:23)
[2021-09-13 08:26] LABS: Basophils # (auto) 0.01 K/uL (0-0.2); Basophils % (auto) 0.1 %; Eosinophils # (auto) 0.15 K/uL (0-0.50); Hematocrit (blood only) 43.3 % (40.1-51.0); Hemoglobin 15.2 g/dl (14.0-18.0); Immature Granulocytes # (auto) 0.02 K/uL (0.00-0.02); Immature Granulocytes % (auto) 0.3 %; Lymphocytes # (auto) 2.12 K/uL (1.2-3.4); Lymphocytes % (auto) 28.3 %; Mean Corpuscular Hemoglobin 31.1 pg (25.0-34.0); Mean Corpuscular Hgb Conc 35.1 g/dL (32.0-36.0); Mean Corpuscular Volume 88.7 fL (80.0-100.0); Mean Platelet Volume 9.1 fL (9.4-12.4); Monocytes # (auto) 0.57 K/uL (0.24-0.82); Monocytes % (auto) 7.6 %; Neutrophils # (auto) 4.63 K/uL (1.4-6.5); Neutrophils % (auto) 61.7 %; Platelet Count 211 K/uL (130-400); RDW Coefficient of Variation 12.1 % (11.5-14.5); RDW Standard Deviation 39.5 fL (36.4-46.3); Red Blood Count 4.88 M/uL (4.63-6.08)
[2021-09-13 09:01] LABS: Albumin Globulin Ratio 1.2 (0.9-2); Albumin Level 3.9 gm/dl (3.4-5.0); BUN Creatinine Ratio 10.2 (10-20); Bilirubin,Total 1.8 mg/dl (0.2-1.0); Calcium 9.1 mg/dl (8.5-10.1); Est GFR (African American) 107.5 ml/min; Est GFR (Non-African American) 92.7 ml/min; Globulin 3.3 gm/dl (2.5-4.0); Potassium 4.3 mmol/L (3.5-5.1); Total Protein 7.2 gm/dl (6.0-8.3)
--- NOTE | 2021-09-13 09:43 | Surgery Progress Note ---
Date of Service September 13, 2021 Assessment & Plan (1) Acute cholecystitis due to biliary calculus: Plan: pt is a 45 year-old male who presents to Er with one day history RUQ pain, IMP: acute cholecystitis, cholelithiasis, Plan, I recommend to do laparoscopic cholecystectomy, possible open or cholangiogram, D/W benefits, risks and alternatives of the surgery, the risks- infection, bleeding, injury other organs, incisional hernia, may need ERCP, pt understood, he agrees with surgery, he signed informed consent, I answered all questions, pre-op iv antibiotic, 09/10/2021 12:14Pm. F/U S/P lap luc, POD 1 pt is doing fine, ( T) bili 1.4, regular diet, repeat labs in morning, possible D/C home tomorrow, will F/U, I updated pt about OR finding and the procedure pt had, pt understood, I answered all questions, 09/11/2021 11:43Am. F/U S/P lap luc, POD 2 pt is doing fine, ( T) bili 1.7, I recommend to consult GI for ERCP to R/O CBD stone, D/W benefits, risks and alternatives of the ERCP, pt understood, he agrees with it, I answered all questions, NPO now, will F/U 09/12/2021 10:43Am. F/U S/P lap luc, POD 3 pt is doing fine, ( T) bili 1.9, I recommend to do ERCP to R/O CBD stone, pt understood, he agrees with ERCP, will F/U, 09/13/2021 9:41Am. F/U S/P lap luc, POD 4 pt is doing fine, ( T) bili 1.8, S/P ERCP, - bile leak, pt wants to go home today, discharge home today, post-op acre instruction was given, F/U 1 week, keep JOHAN in, Admission and Anticipated Discharge Date Admission Date: September 09, 2021 Supervising Physician Co-Signing Physician Notes I have seen and examined the patient with DANNY Luna whose note reflects our findings and plan. s/p cholecystectomy. Bili elevated. Decrease in drain output noted. MRCP ordered and to be done later today. Subjective F/U S/P laparoscopic cholecystectomy, POD 1, pt feels better, less abdominal pain, no nausea, no vomiting, no fever, JOHAN-220ml clera fluid, 09/11/2021 11:39AM, F/U S/P laparoscopic cholecystectomy, POD 2, pt is doing fine, tolerated regular diet, less abdominal pain, no nausea, no vomiting, no fever, JOHAN-100ml clear fluid, 09/12/2021 10:39AM, F/U S/P laparoscopic cholecystectomy, POD 3, no significant abdominal pain, no fever, JOHAN 190ml, ( T) bilirubin 1.9, 09/13/2021 9:39AM, F/U S/P laparoscopic cholecystectomy, POD 4, no significant abdominal pain, no fever, JOHAN 100ml, ( T) bilirubin 1.8, S/P ERCP- bile leak, Review of Systems Constitutional: as per Subjective / HPI obesity Eyes: as per Subjective / HPI Respiratory: as per Subjective / HPI Cardiovascular: as per Subjective / HPI Gastrointestinal: as per Subjective / HPI Genitourinary: + as per Subjective / HPI Neurologic: as per Subjective / HPI Psychiatric: as per Subjective / HPI Endocrine: as per Subjective / HPI Hematologic / Lymphatic: as per Subjective / HPI Physical Exam Eyes: PERRL, conjunctivae normal, anicteric sclerae Neck: trachea midline, no thyromegaly Respiratory: normal respiratory effort, lungs clear to auscultation Cardiovascular: RRR, no murmur, no edema Gastrointestinal (Abdomen): soft, mild tenderness at RUQ area, no rebound pain, no distend, BS +, JOHAN intact, all incisions intact, no redness, Musculoskeletal: no cyanosis or clubbing, extremities motor strength 5/5 Neurologic: patellar DTR's 2+ bilat, sensation intact Psychiatric: A+Ox3, euthymic affect Results & Data ([facility]) Vital Signs (Past 12 Hours) Vital Signs Temp Pulse Resp BP Pulse Ox O2 Del Method 09/13/21 07:20 36.4 C L 54 L 14 143/87 H 95 Room Air 09/13/21 04:00 36.7 C 59 L 18 131/81 96 Room Air 09/12/21 21:53 36.9 C 54 L 16 120/76 94 Room Air Laboratory Results Abnormal lab results 09/13/21 09/13/21 Range/Units 07:46 07:46 MPV 9.1 L (9.4-12.4) fL Glucose 100 H (70-99(Fasting)) mg/dl Total Bilirubin 1.8 H (0.2-1.0) mg/dl ALT 87 H (7-52) U/L
--- NOTE | 2021-09-13 10:17 | Discharge Summary (DS) ---
DATE OF ADMISSION: 09/09/2021. DATE OF DISCHARGE: 09/13/2021. ADMISSION DIAGNOSES: Acute cholecystitis, cholelithiasis. DISCHARGE DIAGNOSES: Acute cholecystitis, cholelithiasis. OPERATION: Laparoscopic cholecystectomy. SURGEON: Francoise Vieira MD. Also patient had an ERCP done by Dr. Florencia Martel. DETAILS OF DISCHARGE SUMMARY: This is a 45-year-old gentleman who presented to ED with acute abdomin al pain. The patient had a CT scan diagnosis of acute cholecystitis and we took the patient to the O [facility], we did laparoscopic cholecystectomy. The patient had significant inflammation on the gallbladder wall and also we put 1 JOHAN drainage during the procedure, and the patient tolerated the procedure well . After the procedure, the patient was transferred to recovery room and later [facility] floor and the patient was doing fine; however, the patient's total bilirubin go up to 1.9 after 3 days of the procedure, so we did MR/CT and also the GI doctor did ERCP, found the patient had a bile leak and right now bile leak only pulled out through the JOHAN 100 mL clear, otherwise the patient is d oing fine. No significant abdominal pain, tolerating a regular diet. PHYSICAL EXAMINATION: VITAL SIGNS: Temperature is 143/87, heart rate 54, respiratory rate 14, temperature is 36.4, O2 satu ration 95% on room air. GENERAL: The patient is alert, awake, oriented x3. HEENT: Within normal limitation. NEUROLOGIC: Intact. NECK: No JVD. CHEST: Bilateral lung sounds clear. HEART: Normal S1 and S2. No murmur. ABDOMEN: Soft, no significant tenderness, maybe mildly tender on the right upper quadrant. No rebou nd pain, no distention. All incisions intact. No redness. JOHAN drainage is intact. EXTREMITIES: No edema. The patient wanted to go home. We gave the patient a postop care instructions. The patient understa nds. We discharged the patient home today and I will follow up the patient in one week. Also, yvrose nunes will empty the JOHAN once a day to record how much he pulled out. The patient understands. Job ID: [id number]
== END 2021-09-13 10:38 | disposition home or self-care (01) | DRG 418 ==
LOC: ED 07:30 → OR 14:21 → 3W 18:03